=== PATIENT | male | born 1940 | race Caucasian/White ===

== ENCOUNTER 2020-02-18 23:54 | Inpatient (IN) | payer MEDICARE ==
[2020-02-19 01:50] LABS: Troponin I 0.196 ng/mL (< 0.028)
--- NOTE | 2020-02-19 03:17 | PDOC.HHP ---
Hospitalist HPI - History of Present Illness Altered mental status History of Present Illness: This is an 79-year-old male patient with a history of atrial fibrillation, hypertension, dementia Who was transferred from [facility] on account of left upper lobe pneumonia and acute encephalopathy. He also tested positive for Covid. Patient is noted to have been recently discharged from [facility] with possible CVA. Patient was taken by EMS from his home to [facility] on account of altered mental status. He was noted to have had a fever and occasional cough and was diagnosed with urinary tract infection about a week ago. At [facility] was noted to be somnolent but arousable presenting blood pressure was 135/101, pulse 100, respiratory rate 20, temperature 103.8 and saturation 96 on 4 L oxygen. His labs showed creatinine of 1.99 from baseline of 1.27, lactate was 2.4, troponin was 0.132. CT brain showed no acute intracranial event, chest x-ray showed left upper lobe pneumonia and scattered interstitial opacities mainly representing interstitial edema due to CHF. At [facility] he was given aspirin 300 mg rectally, vancomycin 20 mils per KG, cefepime 2 g and Decadron 10 mg. He was transferred here for higher level care. At presentation here his blood pressure was 140/98, pulse 98, respiratory rate 28, temperature 99.2 and saturation 100% on 3 L oxygen. At the time of my evaluation patient was in bed although responds to his name but does not answer any other question. He has otherwise been generally stable. Hospitalist ROS - Review of Systems ROS unobtainable: due to mental status Hospitalist History - Past Medical History Other Medical History: atrial fibrillation, hypertension, dementia, CHF - Past Surgical History Other Surgical History: Tonsillectomy, vasectomy - Family History Family History: reports: no pertinent history - Social History Smoking Status: Unknown if ever smoked Living Situation: With Family - Exam General Appearance: ill appearing General - other findings: oriented only to self Eye: PERRL, anicteric sclera Heart: RRR, no murmur, no gallops, no rubs Respiratory - other findings: Reduced air movemnt, occasional wheezes Gastrointestinal: soft, non-distended, normal bowel sounds Extremities: no cyanosis, no clubbing, no edema Neurological: cranial nerve grossly intact, no focal deficits Psychiatric: oriented to person, somnolent Hospitalist Results - Labs Result Diagrams: 02/22/20 04:43 02/22/20 04:43 Lab results: Troponin I 0.196 ng/mL (< 0.028) H 02/19/20 01:09 Hospitalist H&P A/P - Plan Plan: This is a 79-year-old male patient with a history of dementia, hypertension and atrial fibrillation transferred from [facility] on account of sepsis secondary to pneumonia in the setting of COVID-19 infection. Acute hypoxic respiratory failure. Patient saturating normally on 3 L. This likely due to Covid pneumonia with possible CAP, mild CHF exacerbation Currently received vancomycin and cefepime Continue oxygen therapy Pulmonology consult if deteriorates. Severe sepsis Patient has elevated troponin lactate, altered mental status, OUSMANE with septic source being lung. With tachypnea and fever Received gentle hydration on account of history of heart failure. chest xray shows some congestion We will trend lactate Continue vancomycin and cefepime Follow-up on culture Pneumonia due to Covid We will start steroids and vitamins OUSMANE precludes remdesivir. We will monitor ferritin and CRP OUSMANE Creatinine elevated at 1.99 from a baseline of 1.27-year ago. Possibly prerenal This could be chronic however. Continue gentle hydration Monitor BMP Nephrology consult if deteriorates. NSTEMI Troponin elevated 0.132 This could be related to her renal function No concerning EKG changes We will trend troponin Received aspirin Consider cardiology consult in a.m. -Acute encephalopathy due to covid/sepsis treat underlying unclear what patients baseline is at the [facility] Atrial fibrillation Patient anticoagulated with apixaban We will resume apixaban once verified. -CHF exacerbation mild will hold lasix on account of sepsis echocardiogram in am to determine EF diurese if indicated Dementia -recent CVA -Poor overall prognosis due to reduced likelihood of survival, will consult palliative care for goals of care discussion VT prophylaxisrestart apixaban once verified CODE STATUSto be discussed. From his notes, patient's family is wary of intubation however more discussion have to be had Consider palliative consult in a.m. for goals of care discussion
[2020-02-19] MEDS ORDERED: Sodium Chloride 0.9% 1,000 ML IV SCH (04:15)
[2020-02-19] MEDS ORDERED: Sodium Chloride 0.9% 500 ML IV SCH (04:15)
[2020-02-19 05:22] LABS: #Lymphocytes 0.5 thou/uL (1.20-3.40); #Monocytes 0.2 thou/uL (0.11-0.59); #Neutrophils 5.2 thou/uL (1.40-6.50); %Basophils 0.2 % (0.0-1.0); %Eosinophils 0.2 % (0.0-10.0); %Lymphocytes 8.5 % (21.0-51.0); %Monocytes 3.4 % (0.0-10.0); %Neutrophils 87.8 % (42.0-75.0); Hemoglobin 13.5 g/dL (14.0-18.0); Mean Corpuscular HGB CONC 32.6 g/dL (32.0-36.0); Mean Corpuscular Hemoglobin 32.2 pg (27.0-31.0); Mean Corpuscular Volume 98.9 fL (78.0-98.0); Platelet Count 125 thou/uL (130-400); RBC Distribution Width 12.3 % (11.5-14.5); Red Blood Cell (RBC) Count 4.18 mill/uL (4.70-6.10)
[2020-02-19 05:23] LABS: Anion Gap 19 mmol/L (10-20); BUN (Urea Nitrogen) 48 mg/dL (8.4-25.7); Calc. Creatinine Clearance 34 mL/min (70-130); Calcium 7.6 mg/dL (7.8-10.44); Carbon Dioxide 17 mmol/L (23-31); Chloride 107 mmol/L (98-107); Glucose 179 mg/dL (83-110); Potassium 3.8 mmol/L (3.5-5.1); Sodium 139 mmol/L (136-145)
[2020-02-19 05:30] LABS: Troponin I 0.158 ng/mL (< 0.028)
[2020-02-19] MEDS ORDERED: Furosemide 40 MG/4 ML VIAL SLOW IVP SCH (08:30)
[2020-02-19] MEDS: Dexamethasone 4 mg/ml Vial SLOW IVP SCH (09:23)
[2020-02-19] MEDS: Cefepime 2 GM in Sodium Chloride 0.9% 100 ML IVPB SCH ×2 (09:23→20:22)
[2020-02-19] MEDS: Carvedilol 6.25 MG TAB PO SCH (16:38)
--- NOTE | 2020-02-19 18:08 | PDOC.BPN ---
- Brief Progress Note Encounter Date: 02/19/20 Encounter Time: 16:00 F/u : COVID The patient i slaying in bed, diuresed significantly. He is on 2L of oxygen, nurse will attempt to wean. He did pass bedside swallow eval He denies complaints but doesn't talk much General: alert, not very verbal CVS: RRR, no murmurs, rubs, gallops Lungs: CTAB Abdomen: +BS, soft, nontender, nondistended Extremities: no edema Chest X ray: left upper lobe pnuemonia and heart failure This is an 79 year old male who presented with altered mental status, found to have pneumonia Acute hypoxic respiratory failure secondary to pneumonia and pulmonary edema - continue IV cefepime. BNP > 3000. Chest Xray shows interstitial changes. Ordered 40 mg IV lasix x 1 OUSMANE - creatinine improved from 1.9 to 1.89. Repeat BMP tomorrow . Repeat UA Elevated troponin - mild elevation, downtrending. Could be from OUSMANE. Will monitor Hypertension - resume coreg COVID+ - continue dexamethasone
--- NOTE | 2020-02-19 19:11 | RAD ---
Exam: Chest one view HISTORY:Evaluate pulmonary edema. Follow-up exam. Comparison: 02/18/2020 FINDINGS: Cardiac silhouette:Stable cardiomegaly. Stable left-sided defibrillator. Aorta: Stable atherosclerosis Pulmonary vessels: Normal Costophrenic angles: Clear LUNGS: Stable multifocal interstitial and alveolar opacities. Pneumothorax: None Osseous abnormalities: None IMPRESSION: No significant interval change.
[2020-02-20] MEDS: Acetaminophen 325 MG TAB PO PRN ×2 (03:44→20:00)
[2020-02-20 05:25] LABS: #Lymphocytes 0.4 thou/uL (1.20-3.40); #Monocytes 0.8 thou/uL (0.11-0.59); #Neutrophils 12.5 thou/uL (1.40-6.50); %Eosinophils 0.2 % (0.0-10.0); %Lymphocytes 3.1 % (21.0-51.0); %Monocytes 5.5 % (0.0-10.0); %Neutrophils 91.2 % (42.0-75.0); Hemoglobin 13.3 g/dL (14.0-18.0); Mean Corpuscular HGB CONC 32.8 g/dL (32.0-36.0); Mean Corpuscular Hemoglobin 32.2 pg (27.0-31.0); Mean Platelet Volume 11.2 fL (7.4-10.4); Platelet Count 138 thou/uL (130-400); RBC Distribution Width 12.3 % (11.5-14.5); Red Blood Cell (RBC) Count 4.15 mill/uL (4.70-6.10); White Blood Cell (WBC) Count 13.7 thou/uL (4.8-10.8)
[2020-02-20 05:48] LABS: Anion Gap 19 mmol/L (10-20); BUN (Urea Nitrogen) 51 mg/dL (8.4-25.7); Calc. Creatinine Clearance 31 mL/min (70-130); Calcium 8.1 mg/dL (7.8-10.44); Carbon Dioxide 21 mmol/L (23-31); Chloride 108 mmol/L (98-107); Glucose 228 mg/dL (83-110); Potassium 3.6 mmol/L (3.5-5.1); Sodium 144 mmol/L (136-145)
[2020-02-20 06:36] LABS: Bacteria/HPF None Seen HPF (None Seen); Bilirubin Negative (Negative); Blood, Urine 1+ (Negative); Clarity Clear (Clear); Glucose, Urine (Dipstick) Normal (Negative); Ketone, Urine Trace mg/dL (Negative); Leukocyte Negative Leu/uL (Negative); Nitrite Negative (Negative); Protein, Urine (Dipstick) 100 mg/dL (Neg-Trace); RBC/HPF 0-3 HPF (0-3); Specific Gravity, Urine 1.021 (1.002-1.036); Squamous Epithelial 0-3 HPF (0-3); Urobilinogen Normal mg/dL (Less than 2); pH, Urine 5.5 (5.0-9.0)
[2020-02-20 06:39] LABS: Urine Culture Reflex Yes Yes
[2020-02-20] MEDS: Dexamethasone 4 mg/ml Vial SLOW IVP SCH (09:10)
[2020-02-20] MEDS: Cefepime 2 GM in Sodium Chloride 0.9% 100 ML IVPB SCH (09:10)
[2020-02-20] MEDS: Carvedilol 6.25 MG TAB PO SCH ×3 (09:11→16:11)
--- NOTE | 2020-02-20 16:59 | PDOC.HOSPP ---
- Subjective Encounter Date: 02/20/20 Encounter Time: 16:58 Subjective: F/u : COVID The patient has been weaned down to 1L nasal cannula. He is more alert. His diet has been upgraded to a pureed diet and he was seen sitting in bed comfortably eating. He is non-verbal . He denies pain - Objective Vital Signs & Weight: Vital Signs (12 hours) Temp Pulse Resp BP Pulse Ox 02/20/20 16:20 98 F 108 H 24 H 131/85 100 02/20/20 11:28 97.6 F 95 22 H 147/89 H 100 02/20/20 09:10 100 02/20/20 07:37 98.8 F 100 18 125/85 100 02/20/20 07:27 98.8 F 100 18 125/85 100 02/20/20 05:20 99.9 F H Weight Admit Weight 174 lb Weight 174 lb I&O: 02/19/20 02/20/20 02/21/20 06:59 06:59 06:59 Intake Total 240 Balance 240 Result Diagrams: 02/20/20 04:32 02/20/20 04:32 Hospitalist ROS - Review of Systems Constitutional: denies: fever, chills - Medication Medications: Active Medications Generic Name Dose Route Start Last Admin Trade Name Freq PRN Reason Stop Dose Admin Acetaminophen 650 mg 02/20/20 03:35 02/20/20 03:44 Acetaminophen 325 Mg Tab PO 650 mg Q6H PRN Administration Fever/Mild Pain Carvedilol 6.25 mg 02/19/20 17:00 02/20/20 16:11 Carvedilol 6.25 Mg Tab PO 6.25 mg BID-WM RUTH Administration Dexamethasone 8 mg 02/19/20 09:00 02/20/20 09:10 Dexamethasone 4 Mg/Ml Vial SLOW IVP 8 mg DAILY RUTH Administration - Exam General Appearance: NAD, awake alert Eye: PERRL, anicteric sclera ENT: normocephalic atraumatic, no oropharyngeal lesions Neck: no JVD Heart: RRR, no murmur, no gallops, no rubs Respiratory: CTAB, no wheezes, no rales, no ronchi Respiratory - other findings: on oxygen 1L Gastrointestinal: soft, non-tender, non-distended, normal bowel sounds Extremities: no cyanosis, no clubbing, no edema Skin: normal turgor, no lesions, no rashes Neurological: cranial nerve grossly intact, normal sensation to touch, no weakness Musculoskeletal: normal tone, normal strength, no muscle wasting Psychiatric: A&O x 3 Hosp A/P - Plan This is an 79 year old male who presented to the hospital with hypoxia and altered mental status. He is COVID+ Acute hypoxic respiratory failure secondary to COVID pneumonia and pulmonary edema - continue IV cefepime. BNP > 3000. Chest Xray shows interstitial changes. Ordered 40 mg IV lasix x 1 on 02/18 - I have weaned him down to 0.5L nasal cannula OUSMANE - creatinine worsened to 2.0. He is not eating much so will order IV fluids at low level Dysphagia - speech has upgraded him to a pureed diet Elevated troponin - mild elevation, downtrending. No chest pain, will monitor Hypertension - controlled - continue coreg COVID+ - continue dexamethasone
[2020-02-20] MEDS ORDERED: Sodium Chloride 0.9% 1,000 ML IV SCH (17:15)
[2020-02-21] MEDS: Acetaminophen 325 MG TAB PO PRN ×2 (01:51→10:06)
[2020-02-21 05:13] LABS: Hemoglobin 12.6 g/dL (14.0-18.0); Mean Corpuscular HGB CONC 32.7 g/dL (32.0-36.0); Mean Corpuscular Hemoglobin 31.8 pg (27.0-31.0); Mean Corpuscular Volume 97.1 fL (78.0-98.0); Mean Platelet Volume 11.2 fL (7.4-10.4); Platelet Count 130 thou/uL (130-400); RBC Distribution Width 12.3 % (11.5-14.5); Red Blood Cell (RBC) Count 3.97 mill/uL (4.70-6.10); White Blood Cell (WBC) Count 11.5 thou/uL (4.8-10.8)
[2020-02-21 05:34] LABS: Anion Gap 15 mmol/L (10-20); BUN (Urea Nitrogen) 57 mg/dL (8.4-25.7); Calc. Creatinine Clearance 31 mL/min (70-130); Calcium 8.3 mg/dL (7.8-10.44); Carbon Dioxide 23 mmol/L (23-31); Chloride 114 mmol/L (98-107); Glucose 209 mg/dL (83-110); Potassium 3.2 mmol/L (3.5-5.1); Sodium 149 mmol/L (136-145)
[2020-02-21] MEDS ORDERED: Potassium Bicarbonate/Cit Ac 20 MEQ TAB PO SCH (10:00)
[2020-02-21] MEDS: Carvedilol 6.25 MG TAB PO SCH ×2 (10:06→16:16)
[2020-02-21] MEDS: Dexamethasone 4 mg/ml Vial SLOW IVP SCH (10:07)
[2020-02-21] MEDS: Cefepime 2 GM in Sodium Chloride 0.9% 100 ML IVPB SCH (10:07)
[2020-02-21] MEDS: Dextrose 5% in Water 1,000 ML IV SCH (10:08)
[2020-02-21] MEDS: Vancomycin 1 GM in Premix Bag 1 BAG IVPB SCH (12:35)
--- NOTE | 2020-02-21 13:51 | RAD ---
Exam: Chest one view HISTORY:Tachypnea. COVID patient Comparison: 02/19/2020 FINDINGS: Cardiac silhouette:Cardiomegaly. Stable dual lead left-sided transvenous defibrillator. Aorta: Elongated Pulmonary vessels: Normal Costophrenic angles: Clear LUNGS: Stable multifocal interstitial and alveolar opacities. Pneumothorax: None Osseous abnormalities: None IMPRESSION: No significant interval change. Multi lobar COVID pneumonia.
[2020-02-21 14:31] LABS: Anion Gap 16 mmol/L (10-20); BUN (Urea Nitrogen) 55 mg/dL (8.4-25.7); Calc. Creatinine Clearance 32 mL/min (70-130); Calcium 8.4 mg/dL (7.8-10.44); Carbon Dioxide 22 mmol/L (23-31); Chloride 116 mmol/L (98-107); Glucose 253 mg/dL (83-110); Potassium 3.5 mmol/L (3.5-5.1); Sodium 150 mmol/L (136-145)
--- NOTE | 2020-02-21 14:47 | PDOC.HOSPP ---
- Subjective Encounter Date: 02/21/20 Encounter Time: 11:00 Subjective: F/u: COVID The patient is non-verbal and not answering any questions Per nursing, he did not do well with pureed diet this morning. Speech to re- evaluate. I have asked nursing to try to wean his oxygen. - Objective Vital Signs & Weight: Vital Signs (12 hours) Temp Pulse Resp BP Pulse Ox 02/21/20 10:30 98.3 F 118 H 20 129/87 97 02/21/20 03:15 98.2 F 107 H 28 H 134/84 98 Weight Admit Weight 174 lb Weight 174 lb I&O: 02/20/20 02/21/20 02/22/20 06:59 06:59 06:59 Intake Total 240 240 Output Total 50 Balance 240 190 Result Diagrams: 02/21/20 04:42 02/21/20 13:34 Hospitalist ROS - Review of Systems Constitutional: denies: fever, chills - Medication Medications: Active Medications Generic Name Dose Route Start Last Admin Trade Name Freq PRN Reason Stop Dose Admin Acetaminophen 650 mg 02/20/20 03:35 02/21/20 10:06 Acetaminophen 325 Mg Tab PO 650 mg Q6H PRN Administration Fever/Mild Pain Carvedilol 6.25 mg 02/19/20 17:00 02/21/20 10:06 Carvedilol 6.25 Mg Tab PO 6.25 mg BID-WM RUTH Administration Dexamethasone 8 mg 02/19/20 09:00 02/21/20 10:07 Dexamethasone 4 Mg/Ml Vial SLOW IVP 8 mg DAILY RUTH Administration Cefepime HCl 2 gm/ Sodium 100 mls @ 200 mls/hr 02/21/20 09:00 02/21/20 10:07 Chloride IVPB 100 mls 0900 RUTH Administration Dextrose/Water 1,000 mls @ 75 mls/hr 02/21/20 10:00 02/21/20 10:08 D5w IV 1,000 mls .[id number] RUTH Administration Vancomycin HCl 1 gm/ Device 200 mls @ 200 mls/hr 02/21/20 14:00 02/21/20 12:35 IVPB 200 mls Q12H RUTH Administration - Exam General Appearance: NAD General - other findings: drowsy, on oxygen, non-verbal Eye: PERRL, anicteric sclera ENT: normocephalic atraumatic, no oropharyngeal lesions Neck: no JVD Heart: RRR, no murmur, no gallops, no rubs Respiratory: CTAB, no wheezes, no rales, no ronchi Gastrointestinal: soft, non-tender, non-distended, normal bowel sounds Extremities: no cyanosis, no clubbing, no edema Skin: normal turgor, no lesions, no rashes Neurological: cranial nerve grossly intact, normal sensation to touch, no weakness Hosp A/P - Plan Chest x ray 02/20: stable changes This is an 79 year old male who presented to the hospital with hypoxia and altered mental status. He is COVID+ Acute hypoxic respiratory failure secondary to COVID pneumonia and pulmonary edema - continue IV cefepime. BNP > 3000. Chest Xray shows interstitial changes. Ordered 40 mg IV lasix x 1 on 02/18 - he is on 3L nasal cannula saturating 100%. Attempt to wean Dementia? - patient non-verbal, refusing to eat. Palliative care has been consulted regarding goals of care, possibly hospice ? Hypernatremia - sodium worsened to 150. Will switch fluids to D5W OUSMANE - creatinine is still 2. Continue D5W Dysphagia - speech has upgraded him to a pureed diet but probably needs to be re-evaluated Elevated troponin - mild elevation, downtrending. No chest pain, will monitor Hypertension - controlled - continue coreg COVID+ - continue dexamethasone
[2020-02-22] MEDS: Vancomycin 1 GM in Premix Bag 1 BAG IVPB SCH (02:00)
[2020-02-22] MEDS: Acetaminophen 325 MG TAB PO PRN ×2 (02:12→10:29)
[2020-02-22] MEDS: Dextrose 5% in Water 1,000 ML IV SCH ×2 (04:22→17:35)
[2020-02-22 05:01] LABS: Hemoglobin 12.6 g/dL (14.0-18.0); Mean Corpuscular Hemoglobin 31.3 pg (27.0-31.0); Mean Corpuscular Volume 97.9 fL (78.0-98.0); Mean Platelet Volume 11.4 fL (7.4-10.4); Platelet Count 129 thou/uL (130-400); RBC Distribution Width 12.3 % (11.5-14.5); Red Blood Cell (RBC) Count 4.04 mill/uL (4.70-6.10)
[2020-02-22 05:25] LABS: Anion Gap 15 mmol/L (10-20); BUN (Urea Nitrogen) 56 mg/dL (8.4-25.7); Calc. Creatinine Clearance 32 mL/min (70-130); Calcium 8.5 mg/dL (7.8-10.44); Carbon Dioxide 22 mmol/L (23-31); Chloride 117 mmol/L (98-107); Glucose 220 mg/dL (83-110); Potassium 3.9 mmol/L (3.5-5.1); Sodium 150 mmol/L (136-145)
[2020-02-22] MEDS: Dexamethasone 4 mg/ml Vial SLOW IVP SCH ×2 (10:25→11:15)
[2020-02-22] MEDS: Carvedilol 6.25 MG TAB PO SCH ×3 (10:26→17:35)
[2020-02-22] MEDS: Cefepime 2 GM in Sodium Chloride 0.9% 100 ML IVPB SCH (11:15)
[2020-02-22] MEDS: Acetaminophen 325 MG Suppository PR PRN (12:03)
--- NOTE | 2020-02-22 14:26 | PDOC.HOSPP ---
- Subjective Encounter Date: 02/22/20 non-verbal - Objective Vital Signs & Weight: Vital Signs (12 hours) Temp Pulse Resp BP Pulse Ox 02/22/20 12:33 99.4 F 02/22/20 12:00 100.8 F H 126 H 36 H 135/63 92 L 02/22/20 11:05 95 02/22/20 10:15 101.8 F H 126 H 32 H 130/80 86 L 02/22/20 05:13 96 02/22/20 03:54 98.5 F Weight Admit Weight 174 lb Weight 174 lb I&O: 02/21/20 02/22/20 02/23/20 06:59 06:59 06:59 Intake Total 240 2224 Output Total 50 Balance 190 2224 Result Diagrams: 02/22/20 04:43 02/22/20 04:43 Hospitalist ROS - Medication Medications: Active Medications Generic Name Dose Route Start Last Admin Trade Name Freq PRN Reason Stop Dose Admin Acetaminophen 650 mg 02/21/20 16:02 02/22/20 02:12 Acetaminophen 325 Mg Tab PO 650 mg Q4H PRN Administration Fever/Mild Pain Acetaminophen 325 mg 02/22/20 10:49 02/22/20 12:03 Acetaminophen 325 Mg Suppository [place] 325 mg Q4H PRN Administration Headache/Fever or Pain Carvedilol 6.25 mg 02/19/20 17:00 02/21/20 16:16 Carvedilol 6.25 Mg Tab PO 6.25 mg BID-WM RUTH Administration Dexamethasone 6 mg 02/22/20 09:00 02/22/20 10:25 Dexamethasone 4 Mg/Ml Vial SLOW IVP 6 mg DAILY RUTH Administration Dextrose/Water 1,000 mls @ 75 mls/hr 02/21/20 10:00 02/22/20 04:22 D5w IV 1,000 mls .[id number] RUTH Administration Sodium Chloride 10 ml 02/21/20 21:00 02/22/20 10:26 Flush - Normal Saline 10 Ml Syringe IVF 10 ml Q12HR RUTH Administration - Exam General - other findings: Patient is nonresponsive. Right side position. Spontaneous movement Heart: no murmur, irregular Heart - other findings: Tachycardia Respiratory: CTAB, no wheezes, no rales, no ronchi Gastrointestinal: soft, non-distended, normal bowel sounds Extremities: no cyanosis, no clubbing, no edema Skin: normal turgor Psychiatric: not oriented Hosp A/P (1) Acute respiratory failure with hypoxia Code(s): J96.01 - ACUTE RESPIRATORY FAILURE WITH HYPOXIA Status: Acute (2) Pneumonia due to COVID-19 virus Code(s): U07.1 - COVID-19; J12.82 - PNEUMONIA DUE TO CORONAVIRUS DISEASE 2019 Status: Acute (3) Dementia Code(s): F03.90 - UNSPECIFIED DEMENTIA WITHOUT BEHAVIORAL DISTURBANCE Status: Acute (4) Hypernatremia Code(s): E87.0 - HYPEROSMOLALITY AND HYPERNATREMIA Status: Acute (5) Dysphagia Code(s): R13.10 - DYSPHAGIA, UNSPECIFIED Status: Acute (6) Hypertension Code(s): I10 - ESSENTIAL (PRIMARY) HYPERTENSION Status: Acute (7) Acute worsening of stage 3 chronic kidney disease Code(s): N18.30 - CHRONIC KIDNEY DISEASE, STAGE 3 UNSPECIFIED Status: Acute (8) Atrial fibrillation with rapid ventricular response Code(s): I48.91 - UNSPECIFIED ATRIAL FIBRILLATION Status: Acute (9) Sepsis Code(s): A41.9 - SEPSIS, UNSPECIFIED ORGANISM Status: Acute - Plan Acute hypoxic respiratory failure: Secondary to COVID-19 pneumonia. Continue supplemental oxygen therapy. Patient does not have the capacity use multidose inhalers and we are not using nebs for Covid positive patients. COVID-19 pneumonia: Remdesivir contraindicated due to his renal function. Continue dexamethasone and vitamin therapy. Continue to follow inflammatory markers. Initial CRP was 1.37, ferritin 660, D-dimer 1.6 Sepsis: Secondary to COVID-19 pneumonia. Manifest with acute kidney injury. No further evidence of bacterial infection. We will discontinue the vancomycin and cefepime. Acute kidney injury: We do have baseline numbers on this patient with regards to his renal function. His GFR in 2019 was around 55. Presented here with a GFR in the low 30s. It is unclear if it had deteriorated between then and now and this is his new baseline or if this is truly acute. Has remained fairly stable since his admission here. Atrial fibrillation with rapid ventricular response: Patient has p.o. Coreg but is unable to adequately take p.o.'s. Give IV metoprolol 5 mg x 1. He is not likely capable of taking the p.o. Eliquis at this time. We will give heparin in light of his renal function. Hyperglycemia: Likely secondary to the steroids. We will add sliding scale insulin. NSTEMI type II: Likely secondary to hypoxia. Given the patient's age and his renal functions difficult to know how to assess these but these may be his baseline numbers. No additional aggressive intervention indicated. Encephalopathy: Patient appears to have some baseline dementia. Nurses were discussing with his daughter today and they indicated he was typically only giving occasional one- word answers. This could be related to his acute infection. Dementia: Stable Dysphagia: Possibly due to the patient's encephalopathy and dementia. Speech has recommended pured diet but will continue to evaluate.
[2020-02-22] MEDS ORDERED: Metoprolol Tartrate 5 MG/5 ML VIAL IVP SCH (14:30)
[2020-02-22] MEDS ORDERED: Dextrose 5% in Water 1,000 ML IV PRN (14:35)
[2020-02-22] MEDS ORDERED: Dextrose 50% Abboject 50 ML SYRINGE SLOW IVP PRN (14:35)
[2020-02-22] MEDS: Heparin 5,000 UNITS/ML VIAL SC SCH ×2 (14:52→20:53)
[2020-02-22] MEDS: HumaLOG 300 UNITS/3 ML VIAL SC PRN (17:35)
[2020-02-23] MEDS ORDERED: Metoprolol Tartrate 5 MG/5 ML VIAL IVP PRN (01:57)
[2020-02-23] MEDS ORDERED: Lorazepam 2 MG/ML VIAL SLOW IVP SCH (02:00)
[2020-02-23] MEDS: HumaLOG 300 UNITS/3 ML VIAL SC PRN ×2 (06:38→18:11)
[2020-02-23] MEDS: Dextrose 5% in Water 1,000 ML IV SCH ×2 (07:31→23:06)
[2020-02-23] MEDS: Dexamethasone 4 mg/ml Vial SLOW IVP SCH (07:33)
[2020-02-23] MEDS: Heparin 5,000 UNITS/ML VIAL SC SCH ×3 (07:33→21:20)
[2020-02-23] MEDS: Carvedilol 6.25 MG TAB PO SCH ×3 (07:33→16:00)
[2020-02-23] MEDS: Diltiazem 125 MG in Sodium Chloride 0.9% 100 ML IVPB SCH (09:49)
--- NOTE | 2020-02-23 15:12 | PDOC.HOSPP ---
- Subjective Encounter Date: 02/23/20 Encounter Time: 09:45 Subjective: Patient currently on nonrebreather using accessory muscles. - Objective Vital Signs & Weight: Vital Signs (12 hours) Temp Pulse Resp BP BP Pulse Ox 02/23/20 11:00 98.7 F 109 H 46 H 164/94 H 98 02/23/20 08:00 98.3 F 128 H 46 H 156/98 H 93 L 02/23/20 04:41 95 02/23/20 03:40 101 H 144/91 H 02/23/20 03:23 99.4 F 132 H 21 H 137/96 H 92 L Weight Admit Weight 174 lb Weight 169 lb 4 oz I&O: 02/22/20 02/23/20 02/24/20 06:59 06:59 06:59 Intake Total 2223 1928 Balance 2223 1928 Result Diagrams: 02/22/20 04:43 02/22/20 04:43 Additional Labs: Accuchecks 02/23/20 02/23/20 02/22/20 10:59 06:16 20:48 POC Glucose 198 H 252 H 217 H 02/22/20 17:03 POC Glucose 236 H Hospitalist ROS - Review of Systems Other: Unable to obtain. - Medication Medications: Active Medications Generic Name Dose Route Start Last Admin Trade Name Freq PRN Reason Stop Dose Admin Acetaminophen 650 mg 02/21/20 16:02 02/22/20 02:12 Acetaminophen 325 Mg Tab PO 650 mg Q4H PRN Administration Fever/Mild Pain Acetaminophen 325 mg 02/22/20 10:49 02/22/20 12:03 Acetaminophen 325 Mg Suppository [place] 325 mg Q4H PRN Administration Headache/Fever or Pain Carvedilol 6.25 mg 02/19/20 17:00 02/23/20 08:05 Carvedilol 6.25 Mg Tab PO Not Given BID-WM RUTH Dexamethasone 6 mg 02/22/20 09:00 02/23/20 07:33 Dexamethasone 4 Mg/Ml Vial SLOW IVP 6 mg DAILY RUTH Administration Heparin Sodium (Porcine) 5,000 units 02/22/20 15:00 02/23/20 07:33 Heparin 5,000 Units/Ml Vial SC 5,000 units TID RUTH Administration Dextrose/Water 1,000 mls @ 75 mls/hr 02/21/20 10:00 02/23/20 07:31 D5w IV 1,000 mls .[id number] RUTH Administration Diltiazem HCl 125 mg/ Sodium 125 mls @ 5 mls/hr 02/23/20 09:00 02/23/20 09:49 Chloride IVPB 125 mls INF RUTH Administration Protocol 5 MG/HR Insulin Human Lispro 0 units 02/22/20 14:35 02/23/20 06:38 Humalog 300 Units/3 Ml Vial SC 4 units .MILD SLIDING SCALE PRN Administration Mild Correctional Scale Metoprolol Tartrate 5 mg 02/23/20 01:57 02/23/20 03:09 Metoprolol Tartrate 5 Mg/5 Ml Vial IVP 5 mg Q6H PRN Administration To Control Heart Rate Sodium Chloride 10 ml 02/21/20 21:00 02/23/20 07:34 Flush - Normal Saline 10 Ml Syringe IVF 10 ml Q12HR RUTH Administration - Exam Neck: negative: supple, symmetric, no JVD, no thyromegaly, no lymphadenopathy, no carotid bruit, JVD Heart: negative: RRR, no murmur, no gallops, no rubs, normal peripheral pulses, irregular, diminshed peripheral pulses, murmur present, II/IV, III/IV Respiratory: no ronchi Gastrointestinal: negative: soft, non-tender, non-distended, normal bowel sounds, no palpable masses, no hepatomegaly, no splenomegaly, no bruit, no g uarding, no rigidity, tender to palpation, distended, diminished bowl sounds, voluntary guarding Hosp A/P (1) COVID-19 Code(s): U07.1 - COVID-19 Status: Acute (2) Acute respiratory failure with hypoxia Code(s): J96.01 - ACUTE RESPIRATORY FAILURE WITH HYPOXIA Status: Acute (3) Atrial fibrillation with rapid ventricular response Code(s): I48.91 - UNSPECIFIED ATRIAL FIBRILLATION Status: Acute (4) Dementia Code(s): F03.90 - UNSPECIFIED DEMENTIA WITHOUT BEHAVIORAL DISTURBANCE Status: Acute (5) Dysphagia Code(s): R13.10 - DYSPHAGIA, UNSPECIFIED Status: Acute (6) Hypertension Code(s): I10 - ESSENTIAL (PRIMARY) HYPERTENSION Status: Acute (7) Hypernatremia Code(s): E87.0 - HYPEROSMOLALITY AND HYPERNATREMIA Status: Acute (8) Protein calorie malnutrition Code(s): E46 - UNSPECIFIED PROTEIN-CALORIE MALNUTRITION Status: Acute - Plan Patient currently on D5 water. We will also start patient on PPN. Family c alled both patient's daughters called updated. Patient's also called however she did not pickup driver the phone so left a message. Explained in details about patient's overall poor prognosis and it seems that patient might be headed for intubation which would be futile. Patient is severely deconditioned has not been eating. We will also consult palliative care. Attempts were made to call patient's . We will start patient on a Cardizem drip.
--- NOTE | 2020-02-23 17:33 | PDOC.FMACP ---
Advance Care Planning - Problem (1) Palliative care encounter Status: Acute Code(s): Z51.5 - ENCOUNTER FOR PALLIATIVE CARE (2) Acute respiratory failure with hypoxia Status: Acute Code(s): J96.01 - ACUTE RESPIRATORY FAILURE WITH HYPOXIA (3) Atrial fibrillation with rapid ventricular response Status: Acute Code(s): I48.91 - UNSPECIFIED ATRIAL FIBRILLATION (4) COVID-19 Status: Acute Code(s): U07.1 - COVID-19 (5) Dementia Status: Acute Code(s): F03.90 - UNSPECIFIED DEMENTIA WITHOUT BEHAVIORAL DISTURBANCE (6) Dysphagia Status: Acute Code(s): R13.10 - DYSPHAGIA, UNSPECIFIED (7) Protein calorie malnutrition Status: Acute Code(s): E46 - UNSPECIFIED PROTEIN-CALORIE MALNUTRITION - Note Participants: family, palliative care Summary: Palliative care has addressed Advanced Care Planning with family. The diagnosis, prognosis and goals of care were discussed. Appropriate forms and documentation to accomplish the goals of care were discussed. All questions were answered. Family initially thought MPOA was in place, confirmed that it was not. is surrogate decision maker as per [place] [employer]. Elected to transition to [facility]AR. Palliative care will revisit Goals of care in relation to Goal of care with known chronic morbidities paired with Covid 19. Poor prognosis. Please also refer to Palliative care notes in note section. Time Spent (mins): 20
[2020-02-23] MEDS ORDERED: D5W-AA 4.25% with LYTES 1,000 ML IV SCH (19:00)
[2020-02-23] MEDS ORDERED: Sodium Acetate 2 mEq/ml 20 MEQ, Sodium Chloride 15 MEQ, Potassium ACETATE 10 MEQ, Potas... IV SCH (22:30)
[2020-02-24] MEDS: HumaLOG 300 UNITS/3 ML VIAL SC PRN ×5 (00:24→21:29)
[2020-02-24] MEDS: Acetaminophen 325 MG Suppository PR PRN ×2 (00:58→16:17)
[2020-02-24] MEDS: Carvedilol 6.25 MG TAB PO SCH ×2 (07:40→18:01)
[2020-02-24] MEDS: Dexamethasone 4 mg/ml Vial SLOW IVP SCH (07:47)
[2020-02-24] MEDS: Heparin 5,000 UNITS/ML VIAL SC SCH ×3 (07:48→20:03)
[2020-02-24] MEDS: Diltiazem 125 MG in Sodium Chloride 0.9% 100 ML IVPB SCH (09:37)
[2020-02-24 10:50] LABS: Hemoglobin 14.6 g/dL (14.0-18.0); Mean Corpuscular HGB CONC 32.7 g/dL (32.0-36.0); Mean Corpuscular Hemoglobin 32.3 pg (27.0-31.0); Mean Corpuscular Volume 98.8 fL (78.0-98.0); Mean Platelet Volume 11.7 fL (7.4-10.4); Platelet Count 142 thou/uL (130-400); RBC Distribution Width 12.5 % (11.5-14.5); Red Blood Cell (RBC) Count 4.51 mill/uL (4.70-6.10); White Blood Cell (WBC) Count 17.2 thou/uL (4.8-10.8)
[2020-02-24 11:09] LABS: ALT (SGPT) 68 U/L (8-55); AST (SGOT) 59 U/L (5-34); Albumin 3.1 g/dL (3.4-4.8); Alkaline Phosphatase 71 U/L (40-110); Anion Gap 15 mmol/L (10-20); BUN (Urea Nitrogen) 75 mg/dL (8.4-25.7); Bilirubin, Total 1.1 mg/dL (0.2-1.2); Calc. Creatinine Clearance 25 mL/min (70-130); Calcium 8.4 mg/dL (7.8-10.44); Carbon Dioxide 20 mmol/L (23-31); Chloride 113 mmol/L (98-107); Globulin 3.5 g/dL (2.4-3.5); Glucose 307 mg/dL (83-110); Magnesium 2.9 mg/dL (1.6-2.6); Potassium 4.3 mmol/L (3.5-5.1); Protein, Total 6.6 g/dL (5.8-8.1)
[2020-02-24 11:38] LABS: Sodium 144 mmol/L (136-145)
[2020-02-24 12:06] LABS: Band 12 % (5-11); MDiff Complete? YES; Monocytes 1 % (0-10); Neutrophil 84 % (42-75); Nucleated RBC 3 % (0); Platelet Morphology Comment Appears Adequate; Polychromasia SLIGHT = 2-3 cells (100X) (0-2/hpf); Reactive Lymphocytes 3 % (0-10)
[2020-02-24] MEDS: Dextrose 5% in Water 1,000 ML IV SCH (14:15)
--- NOTE | 2020-02-24 14:24 | PDOC.HOSPP ---
- Subjective Encounter Date: 02/24/20 Encounter Time: 10:30 Subjective: Patient up in bed appears confused. - Objective Vital Signs & Weight: Vital Signs (12 hours) Temp Pulse Resp BP Pulse Ox 02/24/20 10:35 98.9 F 106 H 40 H 158/82 H 94 L 02/24/20 07:30 99.3 F 116 H 45 H 166/95 H 92 L 02/24/20 07:10 99.3 F 116 H 45 H 166/95 H 92 L 02/24/20 05:05 97 02/24/20 03:36 99.1 F 97 20 130/71 97 Weight Admit Weight 174 lb Weight 169 lb 4 oz I&O: 02/23/20 02/24/20 02/25/20 06:59 06:59 06:59 Intake Total 1928 1895 Balance 1928 1895 Result Diagrams: 02/24/20 10:32 02/24/20 10:32 Additional Labs: Accuchecks 02/24/20 02/24/20 02/23/20 10:36 05:11 20:26 POC Glucose 291 H 263 H 253 H 02/23/20 17:02 POC Glucose 238 H Hospitalist ROS - Review of Systems Other: Unable to obtain - Medication Medications: Active Medications Generic Name Dose Route Start Last Admin Trade Name Lorraine PRN Reason Stop Dose Admin Acetaminophen 650 mg 02/21/20 16:02 02/22/20 02:12 Acetaminophen 325 Mg Tab PO 650 mg Q4H PRN Administration Fever/Mild Pain Acetaminophen 325 mg 02/22/20 10:49 02/24/20 00:58 Acetaminophen 325 Mg Suppository [place] 325 mg Q4H PRN Administration Headache/Fever or Pain Carvedilol 6.25 mg 02/19/20 17:00 02/24/20 07:40 Carvedilol 6.25 Mg Tab PO Not Given BID- RUTH Dexamethasone 6 mg 02/22/20 09:00 02/24/20 07:47 Dexamethasone 4 Mg/Ml Vial SLOW IVP 6 mg DAILY RUTH Administration Heparin Sodium (Porcine) 5,000 units 02/22/20 15:00 02/24/20 14:16 Heparin 5,000 Units/Ml Vial SC 5,000 units TID RUTH Administration Dextrose/Water 1,000 mls @ 75 mls/hr 02/21/20 10:00 02/24/20 14:15 D5w IV 1,000 mls .[id number] RUTH Administration Diltiazem HCl 125 mg/ Sodium 125 mls @ 7.5 mls/hr 02/23/20 09:00 02/24/20 09:37 Chloride IVPB 125 mls INF RUTH Administration Protocol 7.5 MG/HR Insulin Human Lispro 0 units 02/22/20 14:35 02/24/20 11:30 Humalog 300 Units/3 Ml Vial SC 4 units .MILD SLIDING SCALE PRN Administration Mild Correctional Scale Insulin Human Lispro 0 units 02/23/20 21:21 02/24/20 00:24 Humalog 300 Units/3 Ml Vial SC 3 unit .BEDTIME SLIDING SC PRN Administration Bedtime Correctional Scale Metoprolol Tartrate 5 mg 02/23/20 01:57 02/23/20 03:09 Metoprolol Tartrate 5 Mg/5 Ml Vial IVP 5 mg Q6H PRN Administration To Control Heart Rate Sodium Chloride 10 ml 02/21/20 21:00 02/24/20 07:48 Flush - Normal Saline 10 Ml Syringe IVF 10 ml Q12HR RUTH Administration - Exam Heart: negative: RRR, no murmur, no gallops, no rubs, normal peripheral pulses, irregular, diminshed peripheral pulses, murmur present, II/IV, III/IV Respiratory: negative: CTAB, no wheezes, no rales, no ronchi, normal chest expansion, no tachypnea, normal percussion, rales, rhonchi, tachypneic, wheezes Gastrointestinal: negative: soft, non-tender, non-distended, normal bowel sound s, no palpable masses, no hepatomegaly, no splenomegaly, no bruit, no guarding, no rigidity, tender to palpation, distended, diminished bowl sounds, voluntary guarding Extremities: 1+ LE edema Hosp A/P (1) COVID-19 Code(s): U07.1 - COVID-19 Status: Acute (2) Acute respiratory failure with hypoxia Code(s): J96.01 - ACUTE RESPIRATORY FAILURE WITH HYPOXIA Status: Acute (3) Atrial fibrillation with rapid ventricular response Code(s): I48.91 - UNSPECIFIED ATRIAL FIBRILLATION Status: Acute (4) Dementia Code(s): F03.90 - UNSPECIFIED DEMENTIA WITHOUT BEHAVIORAL DISTURBANCE Status: Acute (5) Dysphagia Code(s): R13.10 - DYSPHAGIA, UNSPECIFIED Status: Acute (6) Hypertension Code(s): I10 - ESSENTIAL (PRIMARY) HYPERTENSION Status: Acute (7) Hypernatremia Code(s): E87.0 - HYPEROSMOLALITY AND HYPERNATREMIA Status: Acute (8) Protein calorie malnutrition Code(s): E46 - UNSPECIFIED PROTEIN-CALORIE MALNUTRITION Status: Acute - Plan Patient currently on D5 water. We will also start patient on PPN. Family called both patient's daughters called updated. Patient's also called lopez shaji she did not pick pack worker the phone so left a message. Explained in details about patient's overall poor prognosis and it seems that patient might be headed for intubation which would be futile. Patient is severely deconditioned has not been eating. We will also consult palliative care. Attempts were made to call patient's . We will start patient on a Cardizem drip. 02/23 patient continues to be altered. Is not responding to verbal command. Continue PPN. I did speak with the patient's and daughter updated about overall poor prognosis. Recommended hospice. Patient's and daughter will come and visit him today. Patient sodium level improved. Creatinine has worsened. Patient's Cardizem drip was titrated up.
[2020-02-24] MEDS: AA 4.25 %/CALCIUM/LYTES/D5W 2,000 ML IV SCH (21:30)
[2020-02-25] MEDS: HumaLOG 300 UNITS/3 ML VIAL SC PRN ×4 (05:58→21:16)
[2020-02-25] MEDS: Dexamethasone 4 mg/ml Vial SLOW IVP SCH (09:31)
[2020-02-25] MEDS: Carvedilol 6.25 MG TAB PO SCH ×2 (09:31→12:45)
[2020-02-25] MEDS: Heparin 5,000 UNITS/ML VIAL SC SCH ×3 (09:32→21:15)
[2020-02-25] MEDS ORDERED: Dextrose 5% in Water 1,000 ML IV PRN (10:00)
[2020-02-25] MEDS ORDERED: Insulin Glargine 10 UNITS in Pre-Filled Syringe 1 EACH SC SCH (10:00)
[2020-02-25] MEDS ORDERED: Dextrose 50% Abboject 50 ML SYRINGE SLOW IVP PRN (10:00)
[2020-02-25] MEDS ORDERED: Vancomycin HCl 1.5 GM in Sodium Chloride 0.9% 250 ML 300 ML IVPB SCH (10:09)
[2020-02-25 10:43] LABS: Hemoglobin 15.1 g/dL (14.0-18.0); Mean Corpuscular Hemoglobin 32.1 pg (27.0-31.0); Mean Corpuscular Volume 97.3 fL (78.0-98.0); Mean Platelet Volume 11.8 fL (7.4-10.4); Platelet Count 139 thou/uL (130-400); RBC Distribution Width 12.4 % (11.5-14.5); Red Blood Cell (RBC) Count 4.71 mill/uL (4.70-6.10)
[2020-02-25 10:46] VITALS: BMI 23.2
[2020-02-25 11:08] LABS: ALT (SGPT) 73 U/L (8-55); AST (SGOT) 56 U/L (5-34); Alkaline Phosphatase 79 U/L (40-110); Anion Gap 14 mmol/L (10-20); BUN (Urea Nitrogen) 83 mg/dL (8.4-25.7); Bilirubin, Total 1.2 mg/dL (0.2-1.2); CRP (Inflammatory) 3.46 mg/dL (= or < 0.5); Calc. Creatinine Clearance 30 mL/min (70-130); Calcium 8.7 mg/dL (7.8-10.44); Carbon Dioxide 24 mmol/L (23-31); Chloride 116 mmol/L (98-107); Globulin 3.5 g/dL (2.4-3.5); Glucose 324 mg/dL (83-110); Potassium 4.4 mmol/L (3.5-5.1); Protein, Total 6.5 g/dL (5.8-8.1); Sodium 150 mmol/L (136-145)
[2020-02-25 11:55] LABS: Band 6 % (5-11); Lymphocytes 1 % (21-51); MDiff Complete? YES; Monocytes 1 % (0-10); Neutrophil 90 % (42-75); Nucleated RBC 2 % (0); Platelet Morphology Comment Appears Adequate; RBC Morphology Normal; Reactive Lymphocytes 2 % (0-10)
[2020-02-25] MEDS: metroNIDAZOLE 500 MG in Premix Bag 1 BAG IVPB SCH ×2 (12:45→19:56)
--- NOTE | 2020-02-25 14:33 | PDOC.HOSPP ---
- Subjective Encounter Date: 02/25/20 Encounter Time: 11:00 Subjective: Patient up in bed obtunded does not respond. - Objective Vital Signs & Weight: Vital Signs (12 hours) Temp Pulse Resp BP Pulse Ox 02/25/20 11:10 97.8 F 103 H 38 H 129/99 H 100 02/25/20 07:10 98.9 F 107 H 42 H 163/84 H 100 02/25/20 04:08 98.2 F 45 L 14 130/63 96 Weight Admit Weight 174 lb Weight 171 lb 3.2 oz I&O: 02/24/20 02/25/20 02/26/20 06:59 06:59 06:59 Intake Total 1896 757 Balance 1896 757 Result Diagrams: 02/26/20 05:17 02/26/20 05:17 Additional Labs: Accuchecks 02/25/20 02/24/20 02/24/20 04:52 20:22 15:36 POC Glucose 312 H 322 H 310 H Hospitalist ROS - Review of Systems Other: Unable to obtain. - Medication Medications: Active Medications Generic Name Dose Route Start Last Admin Trade Name Freq PRN Reason Stop Dose Admin Acetaminophen 650 mg 02/21/20 16:02 02/22/20 02:12 Acetaminophen 325 Mg Tab PO 650 mg Q4H PRN Administration Fever/Mild Pain Acetaminophen 325 mg 02/22/20 10:49 02/24/20 16:17 Acetaminophen 325 Mg Suppository ID 325 mg Q4H PRN Administration Headache/Fever or Pain Carvedilol 6.25 mg 02/19/20 17:00 02/25/20 12:45 Carvedilol 6.25 Mg Tab PO Not Given BID- RUTH Dexamethasone 6 mg 02/22/20 09:00 02/25/20 09:31 Dexamethasone 4 Mg/Ml Vial SLOW IVP 6 mg DAILY RUTH Administration Heparin Sodium (Porcine) 5,000 units 02/22/20 15:00 02/25/20 09:32 Heparin 5,000 Units/Ml Vial SC 5,000 units TID RUTH Administration Diltiazem HCl 125 mg/ Sodium 125 mls @ 7.5 mls/hr 02/23/20 09:00 02/24/20 09:37 Chloride IVPB 125 mls INF RUTH Administration Protocol 7.5 MG/HR Amino Ac/Electrol/Dextrose/Calcium 2,000 mls @ 50 mls/hr 02/24/20 08:30 02/24/20 21:30 Clinimix E 4.25%-5% Solution IV 2,000 mls INF RUTH Administration Metronidazole 500 mg/ Device 100 mls @ 100 mls/hr 02/25/20 11:00 02/25/20 12:45 IVPB 100 mls 0300,1100,1900 RUTH Administration Insulin Human Lispro 0 units 02/23/20 21:21 02/24/20 21:29 Humalog 300 Units/3 Ml Vial SC 4 unit .BEDTIME SLIDING SC PRN Administration Bedtime Correctional Scale Insulin Human Lispro 0 units 02/25/20 10:00 02/25/20 12:52 Humalog 300 Units/3 Ml Vial SC 8 unit .MODERATE SLIDING SC PRN Administration Moderate Correctional Scale Metoprolol Tartrate 5 mg 02/23/20 01:57 02/23/20 03:09 Metoprolol Tartrate 5 Mg/5 Ml Vial IVP 5 mg Q6H PRN Administration To Control Heart Rate Sodium Chloride 10 ml 02/21/20 21:00 02/25/20 09:33 Flush - Normal Saline 10 Ml Syringe IVF Not Given Q12HR RUTH - Exam Neck: negative: supple, symmetric, no JVD, no thyromegaly, no lymphadenopathy, no carotid bruit, JVD Heart: negative: RRR, no murmur, no gallops, no rubs, normal peripheral pulses, irregular, diminshed peripheral pulses, murmur present, II/IV, III/IV Respiratory: negative: CTAB, no wheezes, no rales, no ronchi, normal chest expansion, no tachypnea, normal percussion, rales, rhonchi, tachypneic, wheezes Gastrointestinal: negative: soft, non-tender, non-distended, normal bowel sounds, no palpable masses, no hepatomegaly, no splenomegaly, no bruit, no guarding, no rigidity, tender to palpation, distended, diminished bowl sounds, voluntary guarding Hosp A/P (1) COVID-19 Code(s): U07.1 - COVID-19 Status: Acute (2) Acute respiratory failure with hypoxia Code(s): J96.01 - ACUTE RESPIRATORY FAILURE WITH HYPOXIA Status: Acute (3) Atrial fibrillation with rapid ventricular response Code(s): I48.91 - UNSPECIFIED ATRIAL FIBRILLATION Status: Acute (4) Dementia Code(s): F03.90 - UNSPECIFIED DEMENTIA WITHOUT BEHAVIORAL DISTURBANCE Status: Acute (5) Dysphagia Code(s): R13.10 - DYSPHAGIA, UNSPECIFIED Status: Acute (6) Hypertension Code(s): I10 - ESSENTIAL (PRIMARY) HYPERTENSION Status: Acute (7) Hypernatremia Code(s): E87.0 - HYPEROSMOLALITY AND HYPERNATREMIA Status: Acute (8) Protein calorie malnutrition Code(s): E46 - UNSPECIFIED PROTEIN-CALORIE MALNUTRITION Status: Acute - Plan Patient currently on D5 water. We will also start patient on PPN. Family called both patient's daughters called updated. Patient's also called however she did not chart picker the phone so left a message. Explained in details about patient's overall poor prognosis and it seems that patient might be headed for intubation which would be futile. Patient is severely deconditioned has not been eating. We will also consult palliative care. Attempts were made to call patient's . We will start patient on a Cardizem drip. 02/23 patient continues to be altered. Is not responding to verbal command. Continue PPN. I did speak with the patient's and daughter updated about overall poor prognosis. Recommended hospice. Patient's and daughter will come and visit him today. Patient sodium level improved. Creatinine has worsened. Patient's Cardizem drip was titrated up. 02/24 we will continue PPN for now. We will start patient on broad-spectrum antibiotics again for the next 24 hours and see if this helps to change patient's overall mental condition. However I doubt it well. After speaking with the family yesterday did they did come and see the patient. Patient's heart rate is controlled currently. His overall prognosis is very poor. We will start patient back on D5 water given his elevated sodium. Spoke with patient's daughter Loren updated her and her mom. Family wanted to take patient home with hospice.
[2020-02-25] MEDS: MEROPENEM 1 GM/50 ML 1 GM in Premix Bag 1 BAG IVPB SCH ×2 (14:56→23:02)
[2020-02-25] MEDS: Dextrose 5% in Water 1,000 ML IV SCH (15:04)
[2020-02-25] MEDS: Vancomycin HCl 750 MG in Sodium Chloride 0.9% 250 ML 250 ML IVPB SCH (15:50)
[2020-02-25] MEDS: levETIRAcetam in NS 500 MG in Premix Bag 1 BAG IVPB SCH (21:15)
[2020-02-26] MEDS: metroNIDAZOLE 500 MG in Premix Bag 1 BAG IVPB SCH ×3 (03:46→19:13)
[2020-02-26 05:57] LABS: Anion Gap 14 mmol/L (10-20); BUN (Urea Nitrogen) 79 mg/dL (8.4-25.7); Calc. Creatinine Clearance 33 mL/min (70-130); Calcium 8.4 mg/dL (7.8-10.44); Carbon Dioxide 21 mmol/L (23-31); Chloride 117 mmol/L (98-107); Glucose 310 mg/dL (83-110); Potassium 4.5 mmol/L (3.5-5.1); Sodium 147 mmol/L (136-145)
[2020-02-26 06:03] LABS: Band 6 % (5-11); Hemoglobin 14.7 g/dL (14.0-18.0); Lymphocytes 14 % (21-51); MDiff Complete? YES; Mean Corpuscular HGB CONC 32.6 g/dL (32.0-36.0); Mean Corpuscular Hemoglobin 31.9 pg (27.0-31.0); Mean Corpuscular Volume 97.9 fL (78.0-98.0); Mean Platelet Volume 12.3 fL (7.4-10.4); Neutrophil 80 % (42-75); Platelet Count 113 thou/uL (130-400); Platelet Morphology Comment Appears Decreased; RBC Distribution Width 12.4 % (11.5-14.5); RBC Morphology Normal; White Blood Cell (WBC) Count 18.3 thou/uL (4.8-10.8)
[2020-02-26] MEDS: HumaLOG 300 UNITS/3 ML VIAL SC PRN ×4 (06:03→20:35)
[2020-02-26] MEDS: levETIRAcetam in NS 500 MG in Premix Bag 1 BAG IVPB SCH ×2 (08:06→20:34)
[2020-02-26] MEDS: Heparin 5,000 UNITS/ML VIAL SC SCH ×3 (08:07→20:34)
[2020-02-26] MEDS: Carvedilol 6.25 MG TAB PO SCH ×3 (08:08→16:25)
[2020-02-26] MEDS: Dexamethasone 4 mg/ml Vial SLOW IVP SCH (08:08)
[2020-02-26] MEDS: Dextrose 5% in Water 1,000 ML IV SCH (11:34)
[2020-02-26] MEDS: MEROPENEM 1 GM/50 ML 1 GM in Premix Bag 1 BAG IVPB SCH ×2 (12:53→22:11)
[2020-02-26] MEDS: Vancomycin HCl 750 MG in Sodium Chloride 0.9% 250 ML 250 ML IVPB SCH (13:49)
--- NOTE | 2020-02-26 15:39 | PDOC.HOSPP ---
- Subjective Encounter Date: 02/26/20 Encounter Time: 10:30 Subjective: Patient continues to be obtunded - Objective Vital Signs & Weight: Vital Signs (12 hours) Temp Pulse Resp BP BP Pulse Ox 02/26/20 11:25 98.9 F 101 H 128/67 100 02/26/20 08:00 99.1 F 100 30 H 145/74 H 100 Weight Admit Weight 174 lb Weight 171 lb 3.2 oz I&O: 02/25/20 02/26/20 02/27/20 06:59 06:59 06:59 Intake Total 757 2182 Balance 757 2182 Result Diagrams: 02/26/20 05:17 02/26/20 05:17 Additional Labs: Accuchecks 02/26/20 02/26/20 02/25/20 10:38 05:29 20:24 POC Glucose 282 H 293 H 309 H 02/25/20 02/25/20 16:37 11:00 POC Glucose 268 H 311 H Hospitalist ROS - Review of Systems Other: Unable to obtain - Medication Medications: Active Medications Generic Name Dose Route Start Last Admin Trade Name Freq PRN Reason Stop Dose Admin Acetaminophen 650 mg 02/21/20 16:02 02/22/20 02:12 Acetaminophen 325 Mg Tab PO 650 mg Q4H PRN Administration Fever/Mild Pain Acetaminophen 325 mg 02/22/20 10:49 02/24/20 16:17 Acetaminophen 325 Mg Suppository [place] 325 mg Q4H PRN Administration Headache/Fever or Pain Carvedilol 6.25 mg 02/19/20 17:00 02/26/20 08:13 Carvedilol 6.25 Mg Tab PO Not Given BID- RUTH Dexamethasone 6 mg 02/22/20 09:00 02/26/20 08:08 Dexamethasone 4 Mg/Ml Vial SLOW IVP 6 mg DAILY RUTH Administration Heparin Sodium (Porcine) 5,000 units 02/22/20 15:00 02/26/20 14:38 Heparin 5,000 Units/Ml Vial SC 5,000 units TID RUTH Administration Diltiazem HCl 125 mg/ Sodium 125 mls @ 7.5 mls/hr 02/23/20 09:00 02/24/20 09:37 Chloride IVPB 125 mls INF RUTH Administration Protocol 7.5 MG/HR Amino Ac/Electrol/Dextrose/Calcium 2,000 mls @ 50 mls/hr 02/24/20 08:30 02/24/20 21:30 Clinimix E 4.25%-5% Solution IV 2,000 mls INF RUTH Administration Meropenem 1 gm/ Device 50 mls @ 100 mls/hr 02/25/20 12:00 02/26/20 12:53 IVPB 50 mls 1200,2359 RUTH Administration Metronidazole 500 mg/ Device 100 mls @ 100 mls/hr 02/25/20 11:00 02/26/20 11:32 IVPB 100 mls 0300,1100,1900 RUTH Administration Vancomycin HCl 750 mg/ Sodium 250 mls @ 250 mls/hr 02/25/20 12:00 02/26/20 13:49 Chloride IVPB 250 mls 1200 RUTH Administration Dextrose/Water 1,000 mls @ 50 mls/hr 02/25/20 14:45 02/26/20 11:34 D5w IV 1,000 mls .Q20H RUTH Administration Levetiracetam 500 mg/ Device 100 mls @ 200 mls/hr 02/25/20 21:00 02/26/20 08:06 IVPB 100 mls BID RUTH Administration Insulin Human Lispro 0 units 02/23/20 21:21 02/25/20 21:16 Humalog 300 Units/3 Ml Vial SC 4 unit .BEDTIME SLIDING SC PRN Administration Bedtime Correctional Scale Insulin Human Lispro 0 units 02/25/20 10:00 02/26/20 14:32 Humalog 300 Units/3 Ml Vial SC 6 unit .MODERATE SLIDING SC PRN Administration Moderate Correctional Scale Metoprolol Tartrate 5 mg 02/23/20 01:57 02/23/20 03:09 Metoprolol Tartrate 5 Mg/5 Ml Vial IVP 5 mg Q6H PRN Administration To Control Heart Rate Sodium Chloride 10 ml 02/21/20 21:00 02/26/20 08:11 Flush - Normal Saline 10 Ml Syringe IVF 10 ml Q12HR RUTH Administration - Exam Neck: negative: supple, symmetric, no JVD, no thyromegaly, no lymphadenopathy, no carotid bruit, JVD Heart: negative: RRR, no murmur, no gallops, no rubs, normal peripheral pulses, irregular, diminshed peripheral pulses, murmur present, II/IV, III/IV Respiratory: rhonchi Gastrointestinal: soft, normal bowel sounds Extremities: 1+ LE edema Hosp A/P (1) COVID-19 Code(s): U07.1 - COVID-19 Status: Acute (2) Acute respiratory failure with hypoxia Code(s): J96.01 - ACUTE RESPIRATORY FAILURE WITH HYPOXIA Status: Acute (3) Atrial fibrillation with rapid ventricular response Code(s): I48.91 - UNSPECIFIED ATRIAL FIBRILLATION Status: Acute (4) Dementia Code(s): F03.90 - UNSPECIFIED DEMENTIA WITHOUT BEHAVIORAL DISTURBANCE Status: Acute (5) Dysphagia Code(s): R13.10 - DYSPHAGIA, UNSPECIFIED Status: Acute (6) Hypertension Code(s): I10 - ESSENTIAL (PRIMARY) HYPERTENSION Status: Acute (7) Hypernatremia Code(s): E87.0 - HYPEROSMOLALITY AND HYPERNATREMIA Status: Acute (8) Protein calorie malnutrition Code(s): E46 - UNSPECIFIED PROTEIN-CALORIE MALNUTRITION Status: Acute - Plan Patient currently on D5 water. We will also start patient on PPN. Family called both patient's daughters called updated. Patient's also called however she did not leaf size picker the phone so left a message. Explained in details about patient's overall poor prognosis and it seems that patient might be headed for intubation which would be futile. Patient is severely deconditioned has not been eating. We will also consult palliative care. Attempts were made to call patient's . We will start patient on a Cardizem drip. 02/23 patient continues to be altered. Is not responding to verbal command. Continue PPN. I did speak with the patient's and daughter updated about overall poor prognosis. Recommended hospice. Patient's and daughter will come and visit him today. Patient sodium level improved. Creatinine has worsened. Patient's Cardizem drip was titrated up. 02/24 we will continue PPN for now. We will start patient on broad-spectrum antibiotics again for the next 24 hours and see if this helps to change patient's overall mental condition. However I doubt it well. After speaking with the family yesterday did they did come and see the patient. Patient's heart rate is controlled currently. His overall prognosis is very poor. We will start patient back on D5 water given his elevated sodium. Spoke with patient's daughter Loren updated her and her mom. Family wanted to take patient home with hospice. 02/25 spoke with patient's family yesterday appears that patient was initially taken to [facility] for change in mental status. At this time he was worked up for stroke and also for seizure. According to the patient's daughter Loren MRI brain was negative for stroke and seizure was not indicated on EEG. At this time patient was discharged home. Patient's mentation continued to worsen per patient's daughter at this time he was brought here to the hospital. At baseline patient's family has caregivers in the daytime hours. I have continued the antibiotics no significant change in patient's condition. I have also started patient on Keppra yesterday no changes in patient's condition. I have consulted case management for hospice.
[2020-02-26] MEDS: Diltiazem 125 MG in Sodium Chloride 0.9% 100 ML IVPB SCH (16:57)
[2020-02-26] MEDS: AA 4.25 %/CALCIUM/LYTES/D5W 2,000 ML IV SCH (17:29)
[2020-02-27] MEDS: metroNIDAZOLE 500 MG in Premix Bag 1 BAG IVPB SCH ×3 (03:16→18:32)
[2020-02-27] MEDS: Dextrose 5% in Water 1,000 ML IV SCH ×2 (05:02→18:41)
[2020-02-27] MEDS: HumaLOG 300 UNITS/3 ML VIAL SC PRN ×4 (06:04→20:23)
[2020-02-27] MEDS: Carvedilol 6.25 MG TAB PO SCH ×2 (07:58→15:40)
[2020-02-27] MEDS: Heparin 5,000 UNITS/ML VIAL SC SCH ×3 (09:50→20:21)
[2020-02-27] MEDS: levETIRAcetam in NS 500 MG in Premix Bag 1 BAG IVPB SCH ×2 (09:51→20:21)
[2020-02-27] MEDS: Dexamethasone 4 mg/ml Vial SLOW IVP SCH (09:51)
[2020-02-27 11:34] LABS: Vancomycin, Trough 12.2 ug/mL
[2020-02-27] MEDS: MEROPENEM 1 GM/50 ML 1 GM in Premix Bag 1 BAG IVPB SCH (12:54)
[2020-02-27] MEDS: Diltiazem 125 MG in Sodium Chloride 0.9% 100 ML IVPB SCH (12:56)
[2020-02-27] MEDS: Vancomycin HCl 750 MG in Sodium Chloride 0.9% 250 ML 250 ML IVPB SCH (14:22)
--- NOTE | 2020-02-27 20:36 | PDOC.HOSPP ---
- Subjective Encounter Date: 02/27/20 Encounter Time: 10:30 Subjective: Patient appears nonverbal. - Objective Vital Signs & Weight: Vital Signs (12 hours) Temp Pulse Resp BP BP Pulse Ox 02/27/20 19:55 99.1 F 108 H 30 H 119/81 97 02/27/20 16:20 99.2 F 111 H 28 H 157/99 H 99 02/27/20 10:34 98.8 F 105 H 28 H 141/95 H 100 Weight Admit Weight 174 lb Weight 171 lb 3.2 oz I&O: 02/26/20 02/27/20 02/28/20 06:59 06:59 06:59 Intake Total 2182 1973.1 3.8 Balance 2182 1973.1 3.8 Result Diagrams: 02/26/20 05:17 02/26/20 05:17 Additional Labs: Accuchecks 02/27/20 02/27/20 02/27/20 20:20 10:32 05:36 POC Glucose 262 H 243 H 245 H Hospitalist ROS - Review of Systems Other: Patient nonverbal - Medication Medications: Active Medications Generic Name Dose Route Start Last Admin Trade Name Freq PRN Reason Stop Dose Admin Acetaminophen 650 mg 02/21/20 16:02 02/22/20 02:12 Acetaminophen 325 Mg Tab PO 650 mg Q4H PRN Administration Fever/Mild Pain Acetaminophen 325 mg 02/22/20 10:49 02/24/20 16:17 Acetaminophen 325 Mg Suppository [place] 325 mg Q4H PRN Administration Headache/Fever or Pain Carvedilol 6.25 mg 02/19/20 17:00 02/27/20 15:40 Carvedilol 6.25 Mg Tab PO Not Given BID- RUTH Dexamethasone 6 mg 02/22/20 09:00 02/27/20 09:51 Dexamethasone 4 Mg/Ml Vial SLOW IVP 6 mg DAILY RUTH Administration Heparin Sodium (Porcine) 5,000 units 02/22/20 15:00 02/27/20 20:21 Heparin 5,000 Units/Ml Vial SC 5,000 units TID RUTH Administration Diltiazem HCl 125 mg/ Sodium 125 mls @ 7.5 mls/hr 02/23/20 09:00 02/27/20 12:56 Chloride IVPB 125 mls INF RUTH Administration Protocol 7.5 MG/HR Amino Ac/Electrol/Dextrose/Calcium 2,000 mls @ 50 mls/hr 02/24/20 08:30 02/26/20 17:29 Clinimix E 4.25%-5% Solution IV 2,000 mls INF RUTH Administration Meropenem 1 gm/ Device 50 mls @ 100 mls/hr 02/25/20 12:00 02/27/20 12:54 IVPB 50 mls 1200,2359 RUTH Administration Metronidazole 500 mg/ Device 100 mls @ 100 mls/hr 02/25/20 11:00 02/27/20 18:32 IVPB 100 mls 0300,1100,1900 RUTH Administration Vancomycin HCl 750 mg/ Sodium 250 mls @ 250 mls/hr 02/25/20 12:00 02/27/20 14:22 Chloride IVPB 250 mls 1200 RUTH Administration Dextrose/Water 1,000 mls @ 50 mls/hr 02/25/20 14:45 02/27/20 18:41 D5w IV 1,000 mls .Q20H RUTH Administration Levetiracetam 500 mg/ Device 100 mls @ 200 mls/hr 02/25/20 21:00 02/27/20 20: 21 IVPB 100 mls BID RUTH Administration Insulin Human Lispro 0 units 02/23/20 21:21 02/27/20 20:23 Humalog 300 Units/3 Ml Vial SC 3 unit .BEDTIME SLIDING SC PRN Administration Bedtime Correctional Scale Insulin Human Lispro 0 units 02/25/20 10:00 02/27/20 18:29 Humalog 300 Units/3 Ml Vial SC 6 unit .MODERATE SLIDING SC PRN Administration Moderate Correctional Scale Metoprolol Tartrate 5 mg 02/23/20 01:57 02/23/20 03:09 Metoprolol Tartrate 5 Mg/5 Ml Vial IVP 5 mg Q6H PRN Administration To Control Heart Rate Sodium Chloride 10 ml 02/21/20 21:00 02/27/20 20:21 Flush - Normal Saline 10 Ml Syringe IVF 10 ml Q12HR RUTH Administration - Exam Neck: negative: supple, symmetric, no JVD, no thyromegaly, no lymphadenopathy, no carotid bruit, JVD Heart: negative: RRR, no murmur, no gallops, no rubs, normal peripheral pulses, irregular, diminshed peripheral pulses, murmur present, II/IV, III/IV Respiratory: negative: CTAB, no wheezes, no rales, no ronchi, normal chest expansion, no tachypnea, normal percussion, rales, rhonchi, tachypneic, wheezes Gastrointestinal: negative: soft, non-tender, non-distended, normal bowel sounds, no palpable masses, no hepatomegaly, no splenomegaly, no bruit, no guarding, no rigidity, tender to palpation, distended, diminished bowl sounds, voluntary guarding Hosp A/P (1) COVID-19 Code(s): U07.1 - COVID-19 Status: Acute (2) Acute respiratory failure with hypoxia Code(s): J96.01 - ACUTE RESPIRATORY FAILURE WITH HYPOXIA Status: Acute (3) Atrial fibrillation with rapid ventricular response Code(s): I48.91 - UNSPECIFIED ATRIAL FIBRILLATION Status: Acute (4) Dementia Code(s): F03.90 - UNSPECIFIED DEMENTIA WITHOUT BEHAVIORAL DISTURBANCE Status: Acute (5) Dysphagia Code(s): R13.10 - DYSPHAGIA, UNSPECIFIED Status: Acute (6) Hypertension Code(s): I10 - ESSENTIAL (PRIMARY) HYPERTENSION Status: Acute (7) Hypernatremia Code(s): E87.0 - HYPEROSMOLALITY AND HYPERNATREMIA Status: Acute (8) Protein calorie malnutrition Code(s): E46 - UNSPECIFIED PROTEIN-CALORIE MALNUTRITION Status: Acute - Plan Patient currently on D5 water. We will also start patient on PPN. Family called both patient's daughters called updated. Patient's also called however she did not pick pulling machine tender the phone so left a message. Explained in details about patient's overall poor prognosis and it seems that patient might be headed for intubation which would be futile. Patient is severely deconditioned has not been eating. We will also consult palliative care. Attempts were made to call patient's . We will start patient on a Cardizem drip. 02/23 patient continues to be altered. Is not responding to verbal command. Continue PPN. I did speak with the patient's and daughter updated about overall poor prognosis. Recommended hospice. Patient's and daughter will come and visit him today. Patient sodium level improved. Creatinine has worsened. Patient's Cardizem drip was titrated up. 1/13 we will continue PPN for now. We will start patient on broad-spectrum ant ibiotics again for the next 24 hours and see if this helps to change patient's overall mental condition. However I doubt it well. After speaking with the family yesterday did they did come and see the patient. Patient's heart rate is controlled currently. His overall prognosis is very poor. We will start patient back on D5 water given his elevated sodium. Spoke with patient's daughter Loren updated her and her mom. Family wanted to take patient home with hospice. 02/25 spoke with patient's daughter Loren again patient's overall poor condition. Agreed to take patient home with hospice. I did call both hospice agencies about patient going home with peripheral nutrition. [facility] has agreed to take patient however will not be able to take the patient onto Sunday. Loren's (daughter) phone number is [phone].
[2020-02-28] MEDS: MEROPENEM 1 GM/50 ML 1 GM in Premix Bag 1 BAG IVPB SCH ×2 (00:28→13:38)
[2020-02-28] MEDS: metroNIDAZOLE 500 MG in Premix Bag 1 BAG IVPB SCH ×2 (03:11→11:32)
[2020-02-28 06:14] LABS: Anion Gap 17 mmol/L (10-20); BUN (Urea Nitrogen) 72 mg/dL (8.4-25.7); Calc. Creatinine Clearance 35 mL/min (70-130); Calcium 8.2 mg/dL (7.8-10.44); Carbon Dioxide 19 mmol/L (23-31); Chloride 118 mmol/L (98-107); Glucose 345 mg/dL (83-110); Magnesium 2.9 mg/dL (1.6-2.6); Potassium 5.2 mmol/L (3.5-5.1); Sodium 149 mmol/L (136-145)
[2020-02-28] MEDS: HumaLOG 300 UNITS/3 ML VIAL SC PRN ×4 (06:29→20:37)
[2020-02-28] MEDS: Diltiazem 125 MG in Sodium Chloride 0.9% 100 ML IVPB SCH (06:32)
[2020-02-28] MEDS: Carvedilol 6.25 MG TAB PO SCH ×2 (07:00→16:40)
[2020-02-28] MEDS: Dexamethasone 4 mg/ml Vial SLOW IVP SCH (07:19)
[2020-02-28] MEDS: Heparin 5,000 UNITS/ML VIAL SC SCH ×3 (07:19→19:51)
[2020-02-28] MEDS: levETIRAcetam in NS 500 MG in Premix Bag 1 BAG IVPB SCH ×2 (07:21→19:50)
[2020-02-28] MEDS: Morphine 2 MG/ML VIAL SLOW IVP PRN (07:54)
--- NOTE | 2020-02-28 10:12 | RAD ---
XR Chest 1 View Portable History: Covid pneumonia Comparison: Radiograph February 21, 2020 Findings: Slight worsening lung aeration with extensive peripheral perihilar opacities. Cardiac devic e is similar. No acute osseous abnormality. Impression: Slight worsening lung aeration.
[2020-02-28] MEDS: Insulin Glargine 7 UNITS in Pre-Filled Syringe 1 EACH SC SCH (11:28)
[2020-02-28] MEDS: Vancomycin HCl 750 MG in Sodium Chloride 0.9% 250 ML 250 ML IVPB SCH (13:38)
[2020-02-28] MEDS ORDERED: Sodium Acetate 2 mEq/ml 20 MEQ, Sodium Chloride 15 MEQ, Potassium ACETATE 10 MEQ, Potas... IV SCH (14:30)
[2020-02-28] MEDS: Dextrose 5% in Water 1,000 ML IV SCH (14:32)
[2020-02-28 17:03] LABS: Anion Gap 15 mmol/L (10-20); BUN (Urea Nitrogen) 71 mg/dL (8.4-25.7); Calc. Creatinine Clearance 38 mL/min (70-130); Carbon Dioxide 19 mmol/L (23-31); Chloride 119 mmol/L (98-107); Glucose 308 mg/dL (83-110); Potassium 5.2 mmol/L (3.5-5.1); Sodium 148 mmol/L (136-145)
--- NOTE | 2020-02-28 17:48 | PDOC.HOSPP ---
- Subjective Encounter Date: 02/28/20 Encounter Time: 17:48 Subjective: F/u: COVID pneumonia The patient is on a non-rebreather. He is non-verbal. Awaiting hospice bed BP was 120/100 when I saw him - Objective Vital Signs & Weight: Vital Signs (12 hours) Temp Pulse Resp BP BP Pulse Ox 02/28/20 16:10 98.2 F 85 24 H 132/71 100 02/28/20 11:24 97.9 F 85 20 143/85 H 100 02/28/20 09:07 100 02/28/20 07:29 98.7 F 99 26 H 127/73 100 Weight Admit Weight 174 lb Weight 171 lb 3.2 oz I&O: 02/27/20 02/28/20 02/29/20 06:59 06:59 06:59 Intake Total 1973.1 3719.7 Balance 1973.1 3719.7 Result Diagrams: 02/26/20 05:17 02/28/20 16:24 Additional Labs: Accuchecks 02/28/20 02/28/20 02/27/20 16:07 10:09 20:20 POC Glucose 267 H 322 H 262 H Hospitalist ROS - Review of Systems ROS unobtainable: due to mental status - Medication Medications: Active Medications Generic Name Dose Route Start Last Admin Trade Name Saravananq PRN Reason Stop Dose Admin Acetaminophen 650 mg 02/21/20 16:02 02/22/20 02:12 Acetaminophen 325 Mg Tab PO 650 mg Q4H PRN Administration Fever/Mild Pain Acetaminophen 325 mg 02/22/20 10:49 02/24/20 16:17 Acetaminophen 325 Mg Suppository IN 325 mg Q4H PRN Administration Headache/Fever or Pain Carvedilol 6.25 mg 02/19/20 17:00 02/28/20 16:40 Carvedilol 6.25 Mg Tab PO Not Given BID-WM RUTH Dexamethasone 6 mg 02/22/20 09:00 02/28/20 07:19 Dexamethasone 4 Mg/Ml Vial SLOW IVP 6 mg DAILY RUTH Administration Heparin Sodium (Porcine) 5,000 units 02/22/20 15:00 02/28/20 13:39 Heparin 5,000 Units/Ml Vial SC 5,000 units TID RUTH Administration Diltiazem HCl 125 mg/ Sodium 125 mls @ 7.5 mls/hr 02/23/20 09:00 02/28/20 06:32 Chloride IVPB 125 mls INF RUTH Administration Protocol 7.5 MG/HR Meropenem 1 gm/ Device 50 mls @ 100 mls/hr 02/25/20 12:00 02/28/20 13:38 IVPB 50 mls 1200,2359 RUTH Administration Metronidazole 500 mg/ Device 100 mls @ 100 mls/hr 02/25/20 11:00 02/28/20 11:32 IVPB 100 mls 0300,1100,1900 RUTH Administration Vancomycin HCl 750 mg/ Sodium 250 mls @ 250 mls/hr 02/25/20 12:00 02/28/20 13:38 Chloride IVPB 250 mls 1200 RUTH Administration Dextrose/Water 1,000 mls @ 50 mls/hr 02/25/20 14:45 02/28/20 14:32 D5w IV 1,000 mls .Q20H RUTH Administration Levetiracetam 500 mg/ Device 100 mls @ 200 mls/hr 02/25/20 21:00 02/28/20 07:21 IVPB 100 mls BID RUTH Administration Insulin Glargine 7 units/ 0.07 mls @ 0 mls/hr 02/28/20 09:00 02/28/20 11:28 Miscellaneous Medication SC 0.07 mls QAM RUTH Administration Sodium Acetate 20 meq/ Sodium 1,034.7641 mls @ 50 mls/hr 02/28/20 14:30 02/28/20 15:59 Chloride 15 meq/ Potassium IV 1,034.7641 mls Acetate 10 meq/ Potassium INF RUTH Administration Phosphate 15 mmol/ Calcium Gluconate 4.5 meq/ Magnesium Sulfate 5 meq/ Amino Acids/ Dextrose Insulin Human Lispro 0 units 02/23/20 21:21 02/27/20 20:23 Humalog 300 Units/3 Ml Vial SC 3 unit .BEDTIME SLIDING SC PRN Administration Bedtime Correctional Scale Insulin Human Lispro 0 units 02/25/20 10:00 02/28/20 16:11 Humalog 300 Units/3 Ml Vial SC 6 unit .MODERATE SLIDING SC PRN Administration Moderate Correctional Scale Metoprolol Tartrate 5 mg 02/23/20 01:57 02/23/20 03:09 Metoprolol Tartrate 5 Mg/5 Ml Vial IVP 5 mg Q6H PRN Administration To Control Heart Rate Morphine Sulfate 2 mg 02/27/20 21:16 02/28/20 07:54 Morphine 2 Mg/Ml Vial SLOW IVP 2 mg Q4H PRN Administration Moderate Pain (4-6) Sodium Chloride 10 ml 02/21/20 21:00 02/28/20 07:21 Flush - Normal Saline 10 Ml Syringe IVF 10 ml Q12HR RUTH Administration - Exam General - other findings: on-nonrebreather, nonverbal Eye: PERRL ENT: normocephalic atraumatic, no oropharyngeal lesions Neck: no JVD Heart: RRR, no murmur, no gallops, no rubs Respiratory: CTAB, no wheezes, no rales, no ronchi Gastrointestinal: soft, non-tender, non-distended, normal bowel sounds Extremities: no cyanosis, no clubbing, no edema Hosp A/P - Plan Chest x ray 02/20: stable changes Chest Xray 02/27: worsening lung aeration This is an 79 year old male who presented to the hospital with hypoxia and altered mental status. He is COVID+ Acute hypoxic respiratory failure secondary to COVID pneumonia - continue IV cefepime. BNP > 3000. Chest Xray shows interstitial changes. Ordered 40 mg IV lasix x 1 on 02/18, however creatinine worsened so further lasix held. - continue vancomycin, meropenem and dexamethasone. Will discontinue flagyl . His WBC is increasing to 18. Chest Xray shows worsening lung aeration. Will add micafungin - patients respiratory status continues to decline. He will hopefully be accepted to hospice in a few days, I am not sure if he will even survive by then . Will repeat another BNP Dementia - patient non-verbal, refusing to eat. Patient to transition to hospice Hypernatremia - sodium barely improving to 148. Continue D5W and PPN OUSMANE - secondary to dehydration - creatinine improving to 1.6, continue PPN Dysphagia - patient is NPO on PPN Elevated troponin - mild elevation, downtrending. No chest pain, will monitor Hypertension - controlled - continue coreg COVID+ - continue dexamethasone
[2020-02-28] MEDS: Micafungin 100 MG in Sodium Chloride 0.9% 100 ML IVPB SCH (18:23)
[2020-02-29] MEDS: MEROPENEM 1 GM/50 ML 1 GM in Premix Bag 1 BAG IVPB SCH ×2 (00:27→11:48)
[2020-02-29 05:13] LABS: Hemoglobin 14.9 g/dL (14.0-18.0); Mean Corpuscular HGB CONC 33.2 g/dL (32.0-36.0); Mean Corpuscular Hemoglobin 32.8 pg (27.0-31.0); Mean Corpuscular Volume 98.8 fL (78.0-98.0); Mean Platelet Volume 12.6 fL (7.4-10.4); Platelet Count 72 thou/uL (130-400); Red Blood Cell (RBC) Count 4.56 mill/uL (4.70-6.10)
[2020-02-29 05:31] LABS: Anion Gap 15 mmol/L (10-20); BUN (Urea Nitrogen) 70 mg/dL (8.4-25.7); Calc. Creatinine Clearance 40 mL/min (70-130); Carbon Dioxide 19 mmol/L (23-31); Chloride 118 mmol/L (98-107); Glucose 304 mg/dL (83-110); Potassium 5.4 mmol/L (3.5-5.1); Sodium 147 mmol/L (136-145)
[2020-02-29] MEDS: Diltiazem 125 MG in Sodium Chloride 0.9% 100 ML IVPB SCH (05:32)
[2020-02-29] MEDS: HumaLOG 300 UNITS/3 ML VIAL SC PRN ×4 (06:27→21:33)
[2020-02-29] MEDS: levETIRAcetam in NS 500 MG in Premix Bag 1 BAG IVPB SCH ×2 (09:55→21:31)
[2020-02-29] MEDS: Insulin Glargine 7 UNITS in Pre-Filled Syringe 1 EACH SC SCH (09:56)
[2020-02-29] MEDS: Dexamethasone 4 mg/ml Vial SLOW IVP SCH (09:56)
[2020-02-29] MEDS: Heparin 5,000 UNITS/ML VIAL SC SCH ×3 (09:57→22:23)
[2020-02-29] MEDS: Carvedilol 6.25 MG TAB PO SCH ×2 (09:59→17:09)
[2020-02-29] MEDS: Amino Acids 4.25 %/Dextrose 5% 1,000 ML IV SCH (10:06)
[2020-02-29] MEDS: Dextrose 5% in Water 1,000 ML IV SCH ×2 (10:09→21:35)
[2020-02-29] MEDS: Vancomycin HCl 750 MG in Sodium Chloride 0.9% 250 ML 250 ML IVPB SCH (12:24)
--- NOTE | 2020-02-29 16:29 | PDOC.HOSPP ---
- Subjective Encounter Date: 02/29/20 Encounter Time: 13:00 Subjective: F/u: COVID THe patient is still on a non-rebreather nonverbal. No new changes. I discussed with family member that I would be surprised if patient even survives until tomorrow Per family member, patient had a stroke two months ago and has been talking less since then but he was able to speak two word sentences - Objective Vital Signs & Weight: Vital Signs (12 hours) Temp Pulse Resp BP Pulse Ox 02/29/20 11:23 99.2 F 94 20 141/98 H 95 02/29/20 09:57 96 02/29/20 08:00 97.5 F L 110 H 24 H 138/95 H 96 Weight Admit Weight 174 lb Weight 176 lb 9 oz I&O: 02/28/20 02/29/20 03/01/20 06:59 06:59 06:59 Intake Total 3719.7 3131.4 Balance 3719.7 3131.4 Result Diagrams: 02/29/20 04:26 02/29/20 04:26 Additional Labs: Accuchecks 02/29/20 02/28/20 10:56 20:07 POC Glucose 260 H 238 H Hospitalist ROS - Review of Systems ROS unobtainable: due to mental status - Medication Medications: Active Medications Generic Name Dose Route Start Last Admin Trade Name Freq PRN Reason Stop Dose Admin Acetaminophen 650 mg 02/21/20 16:02 02/22/20 02:12 Acetaminophen 325 Mg Tab PO 650 mg Q4H PRN Administration Fever/Mild Pain Acetaminophen 325 mg 02/22/20 10:49 02/24/20 16:17 Acetaminophen 325 Mg Suppository LA 325 mg Q4H PRN Administration Headache/Fever or Pain Carvedilol 6.25 mg 02/19/20 17:00 02/29/20 09:59 Carvedilol 6.25 Mg Tab PO Not Given BID- RUTH Heparin Sodium (Porcine) 5,000 units 02/22/20 15:00 02/29/20 09:57 Heparin 5,000 Units/Ml Vial SC 5,000 units TID RUTH Administration Diltiazem HCl 125 mg/ Sodium 125 mls @ 7.5 mls/hr 02/23/20 09:00 02/29/20 05:32 Chloride IVPB 125 mls INF RUTH Administration Protocol 7.5 MG/HR Meropenem 1 gm/ Device 50 mls @ 100 mls/hr 02/25/20 12:00 02/29/20 11:48 IVPB 50 mls 1200,2359 RUTH Administration Vancomycin HCl 750 mg/ Sodium 250 mls @ 250 mls/hr 02/25/20 12:00 02/29/20 12:24 Chloride IVPB 250 mls 1200 RUTH Administration Dextrose/Water 1,000 mls @ 50 mls/hr 02/25/20 14:45 02/29/20 10:09 D5w IV 1,000 mls .Q20H RUTH Administration Levetiracetam 500 mg/ Device 100 mls @ 200 mls/hr 02/25/20 21:00 02/29/20 09:55 IVPB 100 mls BID RUTH Administration Insulin Glargine 7 units/ 0.07 mls @ 0 mls/hr 02/28/20 09:00 02/29/20 09:56 Miscellaneous Medication SC 0.07 mls QAM RUTH Administration Micafungin Sodium 100 mg/ 100 mls @ 100 mls/hr 02/28/20 18:00 02/28/20 18:23 Sodium Chloride IVPB 100 mls Q24HR RUTH Administration Amino Acids/Dextrose 1,000 mls @ 50 mls/hr 02/29/20 10:00 02/29/20 10:06 Clinimix 4.25/5 IV 1,000 mls INF RUTH Administration Insulin Human Lispro 0 units 02/23/20 21:21 02/28/20 20:37 Humalog 300 Units/3 Ml Vial SC 2 unit .BEDTIME SLIDING SC PRN Administration Bedtime Correctional Scale Insulin Human Lispro 0 units 02/25/20 10:00 02/29/20 11:47 Humalog 300 Units/3 Ml Vial SC 6 unit .MODERATE SLIDING SC PRN Administration Moderate Correctional Scale Metoprolol Tartrate 5 mg 02/23/20 01:57 02/23/20 03:09 Metoprolol Tartrate 5 Mg/5 Ml Vial IVP 5 mg Q6H PRN Administration To Control Heart Rate Morphine Sulfate 2 mg 02/27/20 21:16 02/28/20 07:54 Morphine 2 Mg/Ml Vial SLOW IVP 2 mg Q4H PRN Administration Moderate Pain (4-6) Sodium Chloride 10 ml 02/21/20 21:00 02/29/20 09:59 Flush - Normal Saline 10 Ml Syringe IVF 10 ml Q12HR RUTH Administration - Exam General - other findings: lethargic on non-rebreather Eye: PERRL, anicteric sclera ENT: normocephalic atraumatic, no oropharyngeal lesions Heart: RRR, no murmur, no gallops, no rubs Respiratory: CTAB, no wheezes, no rales, no ronchi Gastrointestinal: soft, non-tender, non-distended, normal bowel sounds Extremities: no cyanosis, no clubbing, no edema Hosp A/P - Plan Chest x ray 02/20: stable changes Chest Xray 02/27: worsening lung aeration This is an 79 year old male who presented to the hospital with hypoxia and altered mental status. He is COVID+ Acute hypoxic respiratory failure secondary to COVID pneumonia - continue IV cefepime. BNP > 3000. Chest Xray shows interstitial changes. Ordered 40 mg IV lasix x 1 on 02/18, however creatinine worsened so further lasix held. Repeat BNP shows improvement to > 1000 - continue vancomycin, meropenem and dexamethasone. Micafungin added 02/27. WBC increasing to 22. Will decrease steroid to 2 mg daily - awaiting acceptance to hospice for tomorrow Dementia - patient non-verbal, refusing to eat. Patient to transition to hospice Hypernatremia - sodium improved to 147 Hyperkalemia - potassium up to 5.4. Discontinued PPN with electrolytes. Will repeat BMP OUSMANE - secondary to dehydration - creatinine improving to 1.58, continue D5W Hyperglycemia - continue insulin sliding scale. Likely from steroids. Will reduce dexamethasone dose Dysphagia - patient is NPO on PPN Elevated troponin - mild elevation, downtrending. No chest pain, will monitor Hypertension - controlled - continue coreg Dispo: poor prognosis, hopefully can be discharged to home hospice tomorrow
[2020-02-29 17:03] LABS: Anion Gap 14 mmol/L (10-20); BUN (Urea Nitrogen) 67 mg/dL (8.4-25.7); Calc. Creatinine Clearance 42 mL/min (70-130); Calcium 7.8 mg/dL (7.8-10.44); Carbon Dioxide 18 mmol/L (23-31); Chloride 117 mmol/L (98-107); Glucose 273 mg/dL (83-110); Potassium 5.3 mmol/L (3.5-5.1); Sodium 144 mmol/L (136-145)
[2020-02-29] MEDS: Micafungin 100 MG in Sodium Chloride 0.9% 100 ML IVPB SCH (17:09)
[2020-03-01] MEDS: MEROPENEM 1 GM/50 ML 1 GM in Premix Bag 1 BAG IVPB SCH ×2 (00:21→12:19)
[2020-03-01] MEDS: Diltiazem 125 MG in Sodium Chloride 0.9% 100 ML IVPB SCH (03:48)
[2020-03-01] MEDS: Morphine 2 MG/ML VIAL SLOW IVP PRN ×2 (04:29→16:21)
[2020-03-01 05:00] LABS: Mean Corpuscular HGB CONC 32.3 g/dL (32.0-36.0); Mean Corpuscular Hemoglobin 32.7 pg (27.0-31.0); Mean Platelet Volume 12.8 fL (7.4-10.4); Platelet Count 60 thou/uL (130-400); RBC Distribution Width 13.3 % (11.5-14.5); Red Blood Cell (RBC) Count 4.88 mill/uL (4.70-6.10); White Blood Cell (WBC) Count 22.5 thou/uL (4.8-10.8)
[2020-03-01 05:16] LABS: Anion Gap 17 mmol/L (10-20); BUN (Urea Nitrogen) 68 mg/dL (8.4-25.7); Calc. Creatinine Clearance 42 mL/min (70-130); Calcium 7.8 mg/dL (7.8-10.44); Carbon Dioxide 16 mmol/L (23-31); Chloride 115 mmol/L (98-107); Glucose 327 mg/dL (83-110); Potassium 5.6 mmol/L (3.5-5.1); Sodium 142 mmol/L (136-145)
[2020-03-01] MEDS: Amino Acids 4.25 %/Dextrose 5% 1,000 ML IV SCH (05:44)
[2020-03-01] MEDS: HumaLOG 300 UNITS/3 ML VIAL SC PRN ×3 (05:44→17:54)
[2020-03-01] MEDS ORDERED: Dexamethasone 4 mg/ml Vial SLOW IVP SCH (09:00)
[2020-03-01] MEDS: Carvedilol 6.25 MG TAB PO SCH ×2 (09:01→16:46)
[2020-03-01] MEDS: Insulin Glargine 7 UNITS in Pre-Filled Syringe 1 EACH SC SCH (09:02)
[2020-03-01] MEDS: levETIRAcetam in NS 500 MG in Premix Bag 1 BAG IVPB SCH (09:03)
[2020-03-01] MEDS: Heparin 5,000 UNITS/ML VIAL SC SCH ×2 (10:33→13:10)
[2020-03-01 10:51] LABS: Vancomycin, Trough 13.1 ug/mL
[2020-03-01] MEDS ORDERED: Vancomycin 1 GM in Premix Bag 1 BAG IVPB SCH (12:00)
[2020-03-01 17:06] VITALS: BP 160/84; TEMP 97.8
--- NOTE | 2020-03-01 17:34 | PDOC.DS.DS ---
Provider - Provider Date of Admission: 02/19/20 00:44 Date of Discharge: 03/01/20 Admitting Provider: Mike Horton MD Primary Care Physician: OUT OF TOWN Course - Hospital Course Hospital Course: Discharge Diagnoses: 1. Acute hypoxic respiratory failure secondary to COVID 2. OUSMANE 3. Leukocytosis 4. Hyperkalemia 5. Hyperglycemia 6. Dysphagia 7. Elevated troponin Hospital Course: This is an 79 year old male with history of dementia who was transferred from [place] due to altered mental status. He tested COVID +. He was found to have left upper lobe pneumonia. THe patient received IV vanc, cefepime and IV steroids. #Acute hypoxic respiratory failure secondary to COVID pneumonia: #Hypernatremia #Dementia #Hyperkalemia #OUSMANE #Hyperglycemia #Dysphagia #elevated troponin - the patient was started on IV steroids and IV antibiotics. He was initially on nasal cannula but his respiratory status continued to worsen. On 02/24, the patient was started on vancomycin and meropenem due to worsening pneumonia on X ray and worsening leukocytosis. THe patient's WBC increased to 22.5. Micafungin was added on 02/27 and his steroid dose was decreased with no improvement. THe patient also developed hypernatremia with sodium increasing to 150. Lasix was given once due to a BNP of > 3000, but further lasix doses were held due to worsening kidney function. The patient was started on D5W and PPN with resolution of his hypernatremia. His creatinine improved from 2.5 to 1.5. Speech therapy evaluated the patient while he was in the hospital. At one point the patient was upgraded to a pured diet, however after the patient's oxygenation worsened, he was downgraded to n.p.o. The patient has been nonverbal during his entire hospital stay. He has become progressively more lethargic in the past few days and is on a 15L venturi mask currently. Palliative care was consulted, and the patient will be discharged with home hospice after discussion with his family. He will be discharged on PPN and all other medicines will be discontinued. Of note, the patient's potassium has worsened to 5.6. His PPN was switched to PPN without electrolytes to help with this. Pertinent Studies: Chest X ray 02/18: no significant change. Stable multifocal interstitial and alveolar opacities Chest Xray 02/18: no significant change Chest x ray 02/27: slight worsening lung aeration Resuscitation Status: 02/23/20 14:09 Resuscitation Status Routine Resuscitation Status: DNAR: NO Resuscitation Discussed with: Marlys Cordova - Labs Lab Results: 03/01/20 04:32 03/01/20 04:32 Abnormal Lab Results - Last 48 hrs 02/28/20 19:22: B-Natriuretic Peptide 1219.7 H 02/29/20 04:26: Sodium 147 H, Potassium 5.4 H, Chloride 118 H, Carbon Dioxide 19 L, BUN 70 H, Creatinine 1.58 H 02/29/20 04:26: WBC 22.0 H, RBC 4.56 L, MCV 98.8 H, MCH 32.8 H, Plt Count 72 L, MPV 12.6 H 02/29/20 16:35: Potassium 5.3 H, Chloride 117 H, Carbon Dioxide 18 L, BUN 67 H, Creatinine 1.58 H 03/01/20 04:32: Potassium 5.6 H, Chloride 115 H, Carbon Dioxide 16 L, BUN 68 H, Creatinine 1.56 H 03/01/20 04:32: WBC 22.5 H, MCV 101.0 H, MCH 32.7 H, Plt Count 60 L, MPV 12.8 H Microbiology - Entire Visit 02/20/20 06:37 Urine voided Urine Culture - Final NO GROWTH AT 48 HOURS - Physical Exam Vitals: Vital Signs (12 hours) Temp Pulse Resp BP Pulse Ox 03/01/20 16:00 97.8 F 85 22 H 160/84 H 85 L 03/01/20 11:00 97.6 F 80 22 H 127/72 100 03/01/20 08:00 97.6 F 96 20 155/88 H 96 03/01/20 06:51 96 19 130/84 100 Weight Admit Weight 174 lb Weight 181 lb 1 oz Physical Exam: The patient was seen and examined on the day of discharge. General: patient lethargic, on a non-rebreather. Appears malnourished CV: RRR, no murmurs, rubs, gallops Lungs: CTAB Abdomen: +BS, soft, nontender, nondistended Extremities: no edema Problem - Time spent with Patient (mins): 30 Plan - Discharge Medications Prescriptions: Amino Acids 4.25 %/Dextrose 5% [Clinimix 4.25/5] 1 ml IV INF #7 bag Home Medications: Medication Instructions Recorded Confirmed Type Amino Acids 4.25 %/Dextrose 5% 1 ml IV INF #7 bag 03/01/20 Rx [Clinimix 4.25/5] Allergies: Penicillins Allergy (Verified 02/19/20 02:55) per granddaughter [id number] Reductase Inhibitor Adverse Reaction (Verified 02/19/20 02:55) makes him feel bad - Discharge Instructions Discharge Instructions:: home with [facility] hospice Activity:: Activity as Tolerated Additional Dietary Instructions:: PPN without electrolytes - Follow up Plan Referrals: [facility],OUT OF [Primary Care Provider] - Disposition: HOME Quality - Care Measures CORE MEASURES:: N/A
--- NOTE | 2020-03-03 17:42 | PQF ---
Dear : Lorie Dorman Date 03/03/2020 Please exercise your independent, professional judgment in responding to the clarification form. Clinical indicators are provided on the bottom of this form for your review Can you please further clarify the nutritional status of the patient? Please check appropriate box(es): [ X ] Protein Calorie Malnutrition: [ ] Mild [ ] Moderate [ X ] Severe [ ] Other Malnutrition (please specify) [ ] Underweight without malnutrition [ ] Cachexia [ ] Other diagnosis [ ] Unable to determine Physician Signature: Date/Time: For continuity of documentation, please document condition throughout progress notes and discharge summary. Thank You. To be completed by CDI/Coding staff for physician review: Present Clinical Indicators - Signs / Symptoms / Labs Results and Location in Medical Record [ x ] BMI 24.6 Nutritional assessment 02/26 [ x ] Protein calorie malnutrition Hospitalist PN pg.5 02/23 [ x ] Weight 77.66 Nutritional assessment 02/26 [ x ] Patient is severely deconditioned and has not been eating Hospitalist PN pg.5 02/23 [ x ] His overall prognosis is very poor Hospitalist PN pg.5 02/23 [ x ] More lethargic in the past few days DS pg.1 Present Risk Factors Results and Location in Medical Record [ x ] Afib H and P pg.1 [ x ] HTN H and P pg.1 [ x ] 79 years old H and P pg.1 [ x ] Dementia H and P pg.1 [ x ] NSTEMI H and P pg.3 [ x ] COVID Pneumonia H and P pg.3 [ x ] CHF H and P pg.3 Present Treatments Results and Location in Medical Record [ x ] Dietary consult Nutritional assessment 02/26 [ x ] Nutritional supplements Nutritional assessment 02/26 [ x ] Amino acid 4.25mg IV MAR [ x ] IV Fluids MAR [ x ] Going home with peripheral nutrition Hospitalist PN pg.5 02/23 CDS/Coal Unloader Signature: Addy Herrmann Phone #: ext [phone] Date 03/03/2020 Moderate Malnutrition (in acute illness) ? Energy Intake: <75% of estimated energy requirement for > 7 days ? Weight Loss: 1-2%/1 week; 5%/ 1 month; 7.5%/3 months ? Other: mild body fat loss; mild muscle mass loss; mild fluid accumulation; Severe Malnutrition (in acute illness) ? Energy Intake: ? 50% of estimated energy requirement for ? 5 days ? Weight Loss: >2%/1 week; >5%/1 month; >7.5%/3 months ? Other: moderate body fat loss; moderate muscle mass loss; moderate- severe fluid accumulation; measurably reduced packing clerk strength Moderate Malnutrition (in chronic illness) ? Energy Intake: <75% of estimated energy requirement for ?1 month ? Weight Loss: 5%/1 month; 7.5%/3 months; 10%/6 months; 20%/1 year ? Other: mild body fat loss; mild muscle mass loss; mild fluid accumulation Severe Malnutrition (in chronic illness) ? Energy Intake: ?75% of estimated energy requirement for ?1 month ? Weight Loss: >5%/1 month; >7.5%/3 months; >10%/6 months; >20%/1 year ? Other: severe body fat loss; severe muscle mass loss; severe fluid accumulation; measurably reduced packing clerk strength This is a permanent part of the Medical Record MTDD
--- NOTE | 2020-03-03 17:43 | PQF ---
Dear : Lorie Dorman Date 03/03/2020 Please exercise your independent, professional judgment in responding to the clarification form. Clinical indicators are provided on the bottom of this form for your review Can you please further clarify the type of CHF exacerbation? Please check appropriate box(es): HEART FAILURE: [ ] Systolic / HFrEF [ ] Diastolic / HfpEF [ ] Combined Systolic / Diastolic [ ] Other diagnosis please specify [X ] Unable to determine Physician Signature: Date/Time: For continuity of documentation, please document condition throughout progress notes and discharge summary. Thank You. To be completed by CDI/Coding staff for physician review: Present Clinical Indicators - Signs / Symptoms / Labs Results and Location in Medical Record [ x ] BNP: 3647.0H, 1219.7H Laboratory [ x ] Representing interstitial edema due to CHF H and P pg.1 [ x ] Extremities: no cyanosis, no clubbing, no edema H and P pg.2 [ x ] Chest x ray shows some congestion H and P pg.3 [ x ] CHF exacerbation H and P pg.4 [ x ] Cardiomegaly Chesy X ray 02/20 Present Risk Factors Results and Location in Medical Record [ x ] Afib H and P pg.1 [ x ] HTN H and P pg.1 [ x ] 79 years old H and P pg.1 [ x ] NSTEMI H and P pg.3 [ x ] COVID Pneumonia H and P pg.3 Present Treatments Results and Location in Medical Record [ x ] IV Lasix 40mg SLOW IV MAR [ x ] Oxygen supplementation H and P pg.1 [ x ] BNP Monitoring Laboratory [ x ] Chest X ray Chest X ray 02/18 CDS/Strategy Execution Consultant Signature: Addy Herrmann Phone #: ext [phone] Date 03/03/20 This is a permanent part of the Medical Record [facility]
--- NOTE | 2020-03-07 19:24 | EKG ---
Test Reason : STAT Blood Pressure : / mmHG Vent. Rate : 110 BPM Atrial Rate : 101 BPM P-R Int : 000 ms QRS Dur : 154 ms QT Int : 360 ms P-R-T Axes : 000 036 213 degrees QTc Int : 487 ms Electronic ventricular pacemaker No previous ECGs available Confirmed by DILIP ALVAREZ MD ([id number]) on 03/07/2020 7:23:30 PM Referred By: BALDEMAR HERNANDEZ Confirmed By:DILIP ALVAREZ MD
== END 2020-03-01 18:40 | disposition hospice, home (50) | DRG 871 ==
LOC: ERS 23:54 → 2SW 02-19 00:44
PROVIDERS: ADMIT Student in an Organized Health Care Education/Training Program; ATTEND Internal Medicine
PROC: 8E0ZXY6 Isolation (ICD-10-PCS; principal; 2020-02-19)
DX: A41.89 Other specified sepsis (principal); U07.1 COVID-19; J96.01 Acute respiratory failure with hypoxia; J12.82 Pneumonia due to coronavirus disease 2019; I21.A1 Myocardial infarction type 2; G93.41 Metabolic encephalopathy; E43 Unspecified severe protein-calorie malnutrition; I13.0 Hypertensive heart and chronic kidney disease with heart failure and stage 1 through stage 4 chronic kidney disease, or unspecified chronic kidney disease; E87.0 Hyperosmolality and hypernatremia; N17.9 Acute kidney failure, unspecified; Z51.5 Encounter for palliative care; Z66 Do not resuscitate; R65.20 Severe sepsis without septic shock; E87.5 Hyperkalemia; F03.90 Unspecified dementia, unspecified severity, without behavioral disturbance, psychotic disturbance, mood disturbance, and anxiety; R13.10 Dysphagia, unspecified; I48.91 Unspecified atrial fibrillation; N18.30 Chronic kidney disease, stage 3 unspecified; I25.10 Atherosclerotic heart disease of native coronary artery without angina pectoris; I50.9 Heart failure, unspecified; E86.0 Dehydration; R73.9 Hyperglycemia, unspecified; M19.90 Unspecified osteoarthritis, unspecified site; N40.0 Benign prostatic hyperplasia without lower urinary tract symptoms; Z88.0 Allergy status to penicillin; Z88.8 Allergy status to other drugs, medicaments and biological substances; Z79.01 Long term (current) use of anticoagulants; Z79.899 Other long term (current) drug therapy; Z95.0 Presence of cardiac pacemaker; Z68.24 Body mass index [BMI] 24.0-24.9, adult; Z86.73 Personal history of transient ischemic attack (TIA), and cerebral infarction without residual deficits
CPT/HCPCS: 36415; 36416; 71045; 80048; 80053; 80202; 81001; 82728; 83605; 83735; 83880; 84443; 84484; 85025; 85027; 86140; 87086; 93005; 93010; J0692; J1100; J1644; J1815; J1940; J1953; J2001; J2060; J2185; J2248; J2270; J3370; J3475; J3490; J7050